=== PATIENT | male | born 1940 | race Caucasian/White ===

== ENCOUNTER → 2016-11-14 | Outpatient (CLI) | payer MEDICARE, OTHER ==
[~2016-11-14] MED LIST: ALLP100T PO; ASP81CT PO; DULO30CA PO; LISI1TAB6 PO; METO-333 PO; OMEP10CA4 PO; OMEP20CA12 PO; SMV10T PO; TEST200V3 IM
--- NOTE | 2016-11-15 10:01 | ECHOCARDIOGRAPHY REPORT ---
PROCEDURE PHYSICIAN: ANAID ASHBY DATE OF PROCEDURE: 11/14/2016 TWO DIMENSIONAL ECHOCARDIOGRAM REPORT PRIMARY PHYSICIAN: Dr. Mcclure OTHER PHYSICIAN: Dr. sAhby REFERRING PHYSICIAN: ORDERING PHYSICIAN: aCndy Conde APRN INDICATION FOR THE PROCEDURE: Coronary artery disease, history of congestive heart failure. MEASUREMENTS DERIVED VALUES LV DIAMETER (LAX) NORMALS NORMALS Diastolic 4.9 (3.6-5.2) Eject. Fract. (60%+/-6%) Systolic (2.3-3.9) Diastolic Vol. % Shortening (0.22-0.42) Systolic Vol. Aortic Root 3.5 IVS THICKNESS Diastolic 1.1 (0.6-1.1) LVPW THICKNESS Diastolic 1.1 (0.6-1.1) LA DIAMETER Systolic 3.5 (2.1-3.7) DESCRIPTION: Two-dimensional echocardiography shows well preserved global left ventricular systolic function with an ejection fraction of approximately 55%. Aortic, mitral and tricuspid valve leaflets show good leaflet excursion. There is no significant pericardial effusion. Doppler imaging shows trivial, mitral and tricuspid regurgitation. There is no evidence of any significant valvular stenosis. The aortic valve appears to be trileaflet. Mitral inflow is consistent with grade I diastolic dysfunction of the left ventricle. There is no evidence of any significant intracardiac shunt on this transthoracic echocardiographic study. Inferior vena cava appears to be of normal size and exhibits normal inspiratory collapse. CONCLUSION: 1. Well preserved global left ventricular systolic function with an ejection fraction of approximately 55%. 2. Trivial mitral and tricuspid regurgitation. 3. Pulmonary artery systolic pressure is estimated to be approximately 25 mmHg. 4. Mild diastolic dysfunction of the left ventricle is indicated on this study. 5. No evidence of any significant valvular stenosis. Job ID: [id number] Dictated Date: 11/14/2016 15:07:26 [employer] Chemist Date: 11/15/2016 09:56:04 / parish
== END ==
LOC: CARD 10:01
PROVIDERS: ATTEND Nurse Practitioner Family
DX: I34.0 Nonrheumatic mitral (valve) insufficiency (principal); I25.10 Atherosclerotic heart disease of native coronary artery without angina pectoris; I50.32 Chronic diastolic (congestive) heart failure; I10 Essential (primary) hypertension; E78.4 Other hyperlipidemia
CPT/HCPCS: 93306

== ENCOUNTER → 2017-05-22 | Outpatient (CLI) | payer MEDICARE, OTHER ==
[2017-05-22 15:22] LABS: BASOPHILS # (AUTO) 0.1 10^3/uL (0.0-0.1); BASOPHILS % (AUTO) 1 % (0-10); EOSINOPHILS # (AUTO) 0.6 10^3/uL (0.0-0.3); EOSINOPHILS % (AUTO) 6 % (0-10); LYMPHOCYTES # (AUTO) 2.4 X 10^3 (1.0-4.0); LYMPHOCYTES % (AUTO) 24 % (12-44); MEAN CORPUSCULAR HEMOGLOBIN 30 PG (25-34); MEAN CORPUSCULAR HGB CONC 34 G/DL (32-36); MEAN CORPUSCULAR VOLUME 91 FL (80-99); MEAN PLATELET VOLUME 10.5 FL (7.4-10.4); MONOCYTES # (AUTO) 0.6 X 10^3 (0.0-1.0); MONOCYTES % (AUTO) 7 % (0-12); NEUTROPHILS # (AUTO) 6.1 X 10^3 (1.8-7.8); NEUTROPHILS % (AUTO) 63 % (42-75); PLATELET COUNT 204 10^3/uL (130-400); RED BLOOD COUNT 4.78 10^6/uL (4.35-5.85); RED CELL DISTRIBUTION WIDTH 13.9 % (10.0-14.5); WHITE BLOOD COUNT 9.8 10^3/uL (4.3-11.0)
[2017-05-22 15:51] LABS: ALBUMIN 4.2 GM/DL (3.2-4.5); BILIRUBIN,TOTAL 0.6 MG/DL (0.1-1.0); CALCIUM 9.3 MG/DL (8.5-10.1); CREATININE SERUM 1.71 MG/DL (0.60-1.30); POTASSIUM 4.4 MMOL/L (3.6-5.0); TOTAL PROTEIN 7.5 GM/DL (6.4-8.2)
== END ==
LOC: LAB 15:05
PROVIDERS: ATTEND Family Medicine
DX: E11.9 Type 2 diabetes mellitus without complications (principal); E78.2 Mixed hyperlipidemia; N18.3 Chronic kidney disease, stage 3 (moderate)
CPT/HCPCS: 36415; 80053; 80061; 83036; 84403; 85025

== ENCOUNTER → 2017-09-10 | Outpatient (CLI) | payer MEDICARE, OTHER ==
--- NOTE | 2017-09-10 12:12 | Diagnostic Imaging Report ---
PROCEDURE: MRI lumbar spine. TECHNIQUE: Multiplanar, multisequence MRI of the lumbar spine was performed without contrast. INDICATION: Chronic low back pain. COMPARISON: No prior studies are available for comparison. FINDINGS: Curvature of the lumbar spine is normal. There is minimal retrolisthesis of L2 on L3 and L3 on L4 with minimal anterolisthesis of L4 on L5. The vertebral body heights are maintained. No acute compression fracture is seen. No geographic marrow lesion is identified. There is significant degenerative disc disease at all levels of the lumbar spine with variable disc space narrowing and desiccation as well as marginal osteophyte formation. The conus is unremarkable at the L1 level. T12-L1: There are degenerative changes to the facets. The central canal is patent. The neural foramina are patent. L1-2: Central canal is patent. Right neural foramen is patent. There does appear to be mild to moderate left neural foraminal narrowing. L2-3: There is broad-based disc/osteophyte complex as well as ligamentous thickening. This does create some trefoil configuration to the thecal sac. There is significant narrowing of bilateral lateral recesses. There is also significant bilateral neural foraminal stenosis. Hypertrophic facet changes are seen. L3-4: Hypertrophic facet changes and ligamentous thickening as well as broad-based disc/osteophyte complex does result in moderate trefoil stenosis to the canal. There is significant bilateral lateral recess stenosis and significant bilateral neural foraminal stenosis. L4-5: Severe hypertrophic facet changes and broad-based disc/osteophyte complex producing severe trefoil stenosis to the canal. There is severe bilateral lateral recess and neural foraminal stenosis. L5-S1: Hypertrophic facet changes are present. Central canal remains patent. There is moderate right and mild left neural foraminal stenosis and bilateral lateral recess stenosis. Paraspinous tissues are unremarkable. IMPRESSION: Significant multilevel degenerative disc and facet disease resulting in multilevel central canal, lateral recess and neural foraminal stenosis described level by level above. No acute compression fracture is detected. Dictated by: Dictated on workstation # [id number]
== END ==
LOC: RAD 10:26
PROVIDERS: ATTEND Family Medicine
DX: M48.07 Spinal stenosis, lumbosacral region (principal); M47.817 Spondylosis without myelopathy or radiculopathy, lumbosacral region; M47.815 Spondylosis without myelopathy or radiculopathy, thoracolumbar region
CPT/HCPCS: 72148

== ENCOUNTER 2018-09-02 08:46 | Outpatient (CLI) | payer MEDICARE, OTHER ==
[~2018-09-02] VITALS: Ht 180.3 cm; Wt 111.2 kg
[2018-09-02] MEDS ORDERED: SIMV10TA3 PO (09:03)
[2018-09-02] MEDS ORDERED: LISI1TAB6 PO (09:03)
[2018-09-02] MEDS ORDERED: ASPI-999 PO (09:03)
[2018-09-02] MEDS ORDERED: ALLO100T PO (09:03)
[2018-09-02] MEDS ORDERED: OMEP20CA12 PO (09:03)
[2018-09-02] MEDS ORDERED: METO-333 PO (09:03)
[2018-09-02] MEDS ORDERED: DULO30CA48 PO (09:03)
[2018-09-02 09:15] VITALS: BP 132/86
[2018-09-02] MEDS ORDERED: LIRA0.6P SQ (09:31)
[2018-09-02 10:16] LABS: BASOPHILS # (AUTO) 0.1 10^3/uL (0.0-0.1); BASOPHILS % (AUTO) 1 % (0-10); EOSINOPHILS # (AUTO) 0.6 10^3/uL (0.0-0.3); EOSINOPHILS % (AUTO) 8 % (0-10); HEMATOCRIT 41 % (40-54); HEMOGLOBIN 13.5 G/DL (13.3-17.7); LYMPHOCYTES % (AUTO) 27 % (12-44); MEAN CORPUSCULAR HEMOGLOBIN 30 PG (25-34); MEAN CORPUSCULAR HGB CONC 33 G/DL (32-36); MEAN CORPUSCULAR VOLUME 91 FL (80-99); MEAN PLATELET VOLUME 10.3 FL (7.4-10.4); MONOCYTES # (AUTO) 0.6 X 10^3 (0.0-1.0); MONOCYTES % (AUTO) 8 % (0-12); NEUTROPHILS # (AUTO) 4.3 X 10^3 (1.8-7.8); NEUTROPHILS % (AUTO) 56 % (42-75); PLATELET COUNT 242 10^3/uL (130-400); RED BLOOD COUNT 4.52 10^6/uL (4.35-5.85); RED CELL DISTRIBUTION WIDTH 14.2 % (10.0-14.5); WHITE BLOOD COUNT 7.6 10^3/uL (4.3-11.0)
[2018-09-02 10:30] LABS: CALCIUM 9.1 MG/DL (8.5-10.1); CREATININE SERUM 1.32 MG/DL (0.60-1.30); POTASSIUM 4.6 MMOL/L (3.6-5.0)
== END 2018-09-02 15:30 ==
LOC: PREOP 08:46
PROVIDERS: ATTEND Orthopaedic Surgery Orthopaedic Surgery of the Spine
DX: Z01.810 Encounter for preprocedural cardiovascular examination (principal); Z01.812 Encounter for preprocedural laboratory examination; Z11.2 Encounter for screening for other bacterial diseases; M48.061 Spinal stenosis, lumbar region without neurogenic claudication
CPT/HCPCS: 36415; 80048; 85025; 86850; 86900; 86901; 87081; 93005

== ENCOUNTER 2018-09-06 09:19 | Day surgery (SDC) | payer MEDICARE, OTHER ==
[~2018-09-06] VITALS: Ht 180.3 cm; Wt 111.2 kg
[~2018-09-06 09:19] MED LIST changes: +ALLO100T PO; +ASPI-999 PO; +DULO30CA48 PO; +LIRA0.6P SQ; +SIMV10TA3 PO
--- OUTSIDE RECORDS SUMMARY | 2018-09-06 09:24 | XMS REPORT | Continuity of Care Document ---
Author Author [facility] Organization [facility] Address Unknown Phone Unavailable Allergies Active Description Code Type Severity Reaction Onset Reported/Identified Relationship to Patient Clinical Status Yes No Known Drug Allergies [id number] Drug Allergy Unknown N/A 08/13/2012 Yes metformin [id number] Drug Allergy Moderate FLU LIKE SYMPTO 09/02/2018 Medications There is no data. Problems Date Dx Coded Attending Type Code Diagnosis Diagnosed By 08/16/2012 Ot 403.90 HYPTNSV CHR KID DIS, UNSPEC, W CHR KD ST 08/16/2012 Ot 414.01 CORONARY ATHEROSCLEROSIS OF [place] CORON 08/16/2012 Ot 425.4 PRIM CARDIOMYOPATHY NEC 08/16/2012 Ot 585.3 CHRONIC KIDNEY DISEASE, STAGE III (MODER 08/16/2012 Ot 786.59 CHEST PAIN NEC 08/16/2012 Ot V12.29 PERSONAL HX OF OTH ENDOCRINE, METABOLIC 08/16/2012 Ot V13.01 PERSONAL HISTORY OF URINARY CALCULI 09/28/2014 Ot 414.01 09/28/2014 Ot 585.9 09/28/2014 WHIT KISER FACC, ANAID FACP CCDS Ot 272.4 09/28/2014 WHIT KISER FACC, ANAID FACP CCDS Ot 401.9 09/28/2014 WHIT KISER FACC, ALI FACP CCDS Ot 414.00 09/28/2014 WHIT KISER FACC, ALI FACP CCDS Ot 425.4 09/28/2014 WHIT KISER FACC, ALI FACP CCDS Ot 428.21 09/28/2014 WHIT KISER FACC, ANAID FACP CCDS Ot 272.4 09/28/2014 WHIT KISER FACC, ANAID FACP CCDS Ot 401.9 09/28/2014 WHIT KISER FACC, ANAID FACP CCDS Ot 414.00 09/28/2014 WHIT KISER FACC, ANAID FACP CCDS Ot 425.4 09/28/2014 WHIT KISER FACC, ANAID FACP CCDS Ot 428.0 09/28/[address] [facility], ALI FACP CCDS Ot 428.21 10/15/2014 SAMANTHA KISER, ALESSIA Sow Ot 585.9 10/15/2014 SAMANTHA KISER, ALESSIA Sow Ot 780.60 10/15/2014 SAMANTHA KISER, ALESSIA Sow Ot 786.2 11/19/2014 ELOISA DO, STEPHANI M Ot 327.23 OBSTRUCTIVE SLEEP APNEA (ADULT) (PEDIATR 12/22/2014 ELOISA DO, STEPHANI M Ot 278.00 12/22/2014 ELOISA DO, STEPHANI M Ot 414.00 12/22/2014 ELOISA DO, STEPHANI M Ot 428.0 02/01/2015 ELOISA DO, STEPHANI M Ot 278.00 02/01/2015 ELOISA DO, STEPHANI M Ot 414.00 02/01/2015 ELOISA DO, STEPHANI M Ot 428.0 11/15/2016 BAIMA, DEIDRE L RAILCAR CARPENTER Ot E78.4 OTHER HYPERLIPIDEMIA 11/15/2016 BAIMA, DEIDRE L RAILCAR CARPENTER Ot I10 ESSENTIAL (PRIMARY) HYPERTENSION 11/15/2016 BAIMA, DEIDRE L RAILCAR CARPENTER Ot I25.10 ATHSCL HEART DISEASE OF [place] CORONARY 11/15/2016 BAIMA, DEIDRE L RAILCAR CARPENTER Ot I34.0 NONRHEUMATIC MITRAL (VALVE) INSUFFICIENC 11/15/2016 BAIMA, DEIDRE L RAILCAR CARPENTER Ot I50.32 CHRONIC DIASTOLIC (CONGESTIVE) HEART DAWNA 11/15/2016 BAIMA, DEIDRE L RAILCAR CARPENTER Ot E78.4 OTHER HYPERLIPIDEMIA 11/15/2016 BAIMA, DEIDRE L RAILCAR CARPENTER Ot I10 ESSENTIAL (PRIMARY) HYPERTENSION 11/15/2016 BAIMA, DEIDRE L RAILCAR CARPENTER Ot I25.10 ATHSCL HEART DISEASE OF [place] CORONARY 11/15/2016 BAIMA, DEIDRE L RAILCAR CARPENTER Ot I34.0 NONRHEUMATIC MITRAL (VALVE) INSUFFICIENC 11/15/2016 BAIMA, DEIDRE L RAILCAR CARPENTER Ot I50.32 CHRONIC DIASTOLIC (CONGESTIVE) HEART DAWNA 12/05/2016 BAIMA, DEIDRE L RAILCAR CARPENTER Ot E78.4 OTHER HYPERLIPIDEMIA 12/05/2016 BAIMA, DEIDRE L RAILCAR CARPENTER Ot I10 ESSENTIAL (PRIMARY) HYPERTENSION 12/05/2016 BAIMA, DEIDRE L RAILCAR CARPENTER Ot I25.10 ATHSCL HEART DISEASE OF [place] CORONARY 12/05/2016 DEIDRE ZAMARIRPA RAILCAR CARPENTER Ot I34.0 NONRHEUMATIC MITRAL (VALVE) INSUFFICIENC 12/05/2016 DEIDRE ZAMARRIPA RAILCAR CARPENTER Ot I50.32 CHRONIC DIASTOLIC (CONGESTIVE) HEART DAWNA 12/20/2016 DEIDRE ZAMARRIPA RAILCAR CARPENTER Ot E78.4 OTHER HYPERLIPIDEMIA 12/20/2016 DEIDRE ZAMARRIPA RAILCAR CARPENTER Ot I10 ESSENTIAL (PRIMARY) HYPERTENSION 12/20/2016 DEIDRE ZAMARRIPA RAILCAR CARPENTER Ot I25.10 ATHSCL HEART DISEASE OF [place] CORONARY 12/20/2016 DEIDRE ZAMARRIPA RAILCAR CARPENTER Ot I34.0 NONRHEUMATIC MITRAL (VALVE) INSUFFICIENC 12/20/2016 DEIDRE ZAMARRIPA RAILCAR CARPENTER Ot I50.32 CHRONIC DIASTOLIC (CONGESTIVE) HEART DAWNA 05/23/2017 SAADIA SRINIVASAN MD Ot E11.9 TYPE 2 DIABETES MELLITUS WITHOUT COMPLIC 05/23/2017 SAADIA SRINIVASAN MD Ot E78.2 MIXED HYPERLIPIDEMIA 05/23/2017 SAADIA SRINIVASAN MD C Ot N18.3 CHRONIC KIDNEY DISEASE, STAGE 3 (MODERAT 06/14/2017 SAADIA SRINIVASAN MD Ot E11.9 TYPE 2 DIABETES MELLITUS WITHOUT COMPLIC 06/14/2017 SAADIA SRINIVASAN MD Ot E78.2 MIXED HYPERLIPIDEMIA 06/14/2017 SAADIA SRINIVASAN MD Ot N18.3 CHRONIC KIDNEY DISEASE, STAGE 3 (MODERAT 09/04/2017 Ot 414.01 CORONARY ATHEROSCLEROSIS OF [place] CORON 09/04/2017 Ot 585.9 CHRONIC KIDNEY DISEASE, UNSPECIFIED 09/04/2017 WHIT KISER FACC, ANAID FACP CCDS Ot 272.4 HYPERLIPIDEMIA NEC/NOS 09/04/2017 WHIT KISER FACC, ALI FACP CCDS Ot 401.9 HYPERTENSION NOS 09/04/2017 WHIT KISER FACC, ALI FACP CCDS Ot 414.00 CORON ATHEROSCLER NOS TYPE VESSEL, NATIV 09/04/2017 WHIT KISER FACC, ALI FACP CCDS Ot 425.4 PRIM CARDIOMYOPATHY NEC 09/04/2017 WHIT KISER FACC, ALI FACP CCDS Ot 428.21 ACUTE SYSTOLIC HEART FAILURE 09/04/2017 WHIT KISER FACC, ALI FACP CCDS Ot 272.4 HYPERLIPIDEMIA NEC/NOS 09/04/2017 WHIT KISER FACC, ALI FACP CCDS Ot 401.9 HYPERTENSION NOS 09/04/2017 WHIT KISER FACC, ALI FACP CCDS Ot 414.00 CORON ATHEROSCLER NOS TYPE VESSEL, NATIV 09/04/2017 WHIT KISER FACC, ALI FACP CCDS Ot 425.4 PRIM CARDIOMYOPATHY NEC 09/04/2017 WHIT KISER FACC, ALI FACP CCDS Ot 428.0 CONGESTIVE HEART FAILURE NOS 09/04/2017 WHIT KISER FACC, ALI FACP CCDS Ot 428.21 ACUTE SYSTOLIC HEART FAILURE 09/04/2017 SAMANTHA KISER, ALESSIA Sow Ot 585.9 CHRONIC KIDNEY DISEASE, UNSPECIFIED 09/04/2017 ALESSIA SINGH MD Ot 780.60 FEVER, UNSPECIFIED 09/04/2017 ALESSIA SINGH MD Ot 786.2 COUGH 09/04/2017 ELIEL AMIN DOSON M Ot 278.00 OBESITY, NOS 09/04/2017 ELOISA YEBOAH STEPHANI M Ot 414.00 CORON ATHEROSCLER NOS TYPE VESSEL, NATIV 09/04/2017 ELIEL AMIN DOSON M Ot 428.0 CONGESTIVE HEART FAILURE NOS 09/04/2017 DEIDRE ZAMARRIPA RAILCAR CARPENTER Ot E78.4 OTHER HYPERLIPIDEMIA 09/04/2017 DEIDRE ZAMARRIPA L RAILCAR CARPENTER Ot I10 ESSENTIAL (PRIMARY) HYPERTENSION 09/04/2017 DEIDRE ZAMARRIPA L RAILCAR CARPENTER Ot I25.10 ATHSCL HEART DISEASE OF [place] CORONARY 09/04/2017 DEIDRE ZAMARRIPA L RAILCAR CARPENTER Ot I34.0 NONRHEUMATIC MITRAL (VALVE) INSUFFICIENC 09/04/2017 DEIDRE ZAMARRIPA RAILCAR CARPENTER Ot I50.32 CHRONIC DIASTOLIC (CONGESTIVE) HEART DAWNA 09/04/2017 CRAIG KISER, SAADIA Andrade Ot E11.9 TYPE 2 DIABETES MELLITUS WITHOUT COMPLIC 09/04/2017 SAADIA SRINIVASAN MD Ot E78.2 MIXED HYPERLIPIDEMIA 09/04/2017 SAADIA SRINIVASAN MD Ot N18.3 CHRONIC KIDNEY DISEASE, STAGE 3 (MODERAT 09/11/2017 SAADIA SRINIVASAN MD Ot 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 09/11/2017 SAADIA SRINIVASAN MD Ot M47.817 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 RADICULOPATHY 09/11/2017 SAADIA SRINIVASAN MD Ot M48.07 SPINAL STENOSIS, LUMBOSACRAL REGION 10/02/2017 CRAIG KISER, SAADIA Andrade Ot 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00 CORON ATHEROSCLER NOS TYPE VESSEL, NATIV 09/02/2018 WHIT KISER FACC, ALI FACP CCDS Ot 425.4 PRIM CARDIOMYOPATHY NEC 09/02/2018 WHIT KISER FACC, ALI FACP CCDS Ot 428.21 ACUTE SYSTOLIC HEART FAILURE 09/02/2018 WHIT KISER FACC, ALI FACP CCDS Ot 272.4 HYPERLIPIDEMIA NEC/NOS 09/02/2018 WHIT KISER FACC, ALI FACP CCDS Ot 401.9 HYPERTENSION NOS 09/02/2018 WHIT KISER FACC, ALI FACP CCDS Ot 414.00 CORON ATHEROSCLER NOS TYPE VESSEL, NATIV 09/02/2018 WHIT KISER FACC, ALI FACP CCDS Ot 425.4 PRIM CARDIOMYOPATHY NEC 09/02/2018 WHIT HANKINSC, ALI FACP CCDS Ot 428.0 CONGESTIVE HEART FAILURE NOS 09/02/2018 WHIT KISER FACC, ALI FACP CCDS Ot 428.21 ACUTE SYSTOLIC HEART FAILURE 09/02/2018 ALESSIA SINGH MD Ot 585.9 CHRONIC KIDNEY DISEASE, UNSPECIFIED 09/02/2018 ALESSIA SINGH MD Ot 780.60 FEVER, UNSPECIFIED 09/02/2018 ALESSIA SINGH MD Ot 786.2 COUGH 09/02/2018 STEPHANI AMIN DO Ot 278.00 OBESITY, NOS 09/02/2018 ELOISA YEBOAH STEPHANI M Ot 414.00 CORON ATHEROSCLER NOS TYPE VESSEL, NATIV 09/02/2018 STEPHANI AMIN DO Ot 428.0 CONGESTIVE HEART FAILURE NOS 09/02/2018 RAKELDEIDRE ROGERS RAILCAR CARPENTER Ot E78.4 OTHER HYPERLIPIDEMIA 09/02/2018 DALLIN DEIDRE Jomar RAILCAR CARPENTER Ot I10 ESSENTIAL (PRIMARY) HYPERTENSION 09/02/2018 DALLIN DEIDRE Hadley RAILCAR CARPENTER Ot I25.10 ATHSCL HEART DISEASE OF [place] CORONARY 09/02/2018 RAKELSUE DEIDRE Jomar RAILCAR CARPENTER Ot I34.0 NONRHEUMATIC MITRAL (VALVE) INSUFFICIENC 09/02/2018 DEIDRE ZAMARRIPA RAILCAR CARPENTER Ot I50.32 CHRONIC DIASTOLIC (CONGESTIVE) HEART DAWNA 09/02/2018 CRAIG KISER, SAADIA Andrade Ot E11.9 TYPE 2 DIABETES MELLITUS WITHOUT COMPLIC 09/02/2018 CRAIG KISER, SAADIA Andrade Ot E78.2 MIXED HYPERLIPIDEMIA 09/02/2018 CRAIG KISER, SAADIA Andrade Ot N18.3 CHRONIC KIDNEY DISEASE, STAGE 3 (MODERAT 09/02/2018 CRAIG KISER, SAADIA C Ot 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 09/02/2018 SAADIA SRINIVASAN MD Ot M47.817 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 RADICULOPATHY 09/02/2018 CRAIG KISER, SAADIA Andrade Ot M48.07 SPINAL STENOSIS, LUMBOSACRAL REGION 09/02/2018 WHIT KISER FACC, ALI FACP CCDS Ot 272.4 HYPERLIPIDEMIA NEC/NOS 09/02/2018 WHIT KISER FACC, ALI FACP CCDS Ot 401.9 HYPERTENSION NOS 09/02/2018 WHIT KISER FACC, ALI FACP CCDS Ot 414.00 CORON ATHEROSCLER NOS TYPE VESSEL, NATIV 09/02/2018 WHIT KISER FACC, ALI FACP CCDS Ot 425.4 PRIM CARDIOMYOPATHY NEC 09/02/2018 WHIT KISER FACC, ALI FACP CCDS Ot 428.21 ACUTE SYSTOLIC HEART FAILURE 09/02/2018 WHIT KISER FACC, ALI FACP CCDS Ot 272.4 HYPERLIPIDEMIA NEC/NOS 09/02/2018 WHIT KISER FACC, ALI FACP CCDS Ot 401.9 HYPERTENSION NOS 09/02/2018 WHIT KISER FAC, ALI FACP CCDS Ot 414.00 CORON ATHEROSCLER NOS TYPE VESSEL, NATIV 09/02/2018 WHIT KISER FACC, ALI FACP CCDS Ot 425.4 PRIM CARDIOMYOPATHY NEC 09/02/2018 WHIT KISER FACC, ALI FACP CCDS Ot 428.0 CONGESTIVE HEART FAILURE NOS 09/02/2018 WHIT KISER FACC, ALI FACP CCDS Ot 428.21 ACUTE SYSTOLIC HEART FAILURE 09/02/2018 SAMANTHA KISER, ALESSIA Sow Ot 585.9 CHRONIC KIDNEY DISEASE, UNSPECIFIED 09/02/2018 SAMANTHA KISER, ALESSIA Sow Ot 780.60 FEVER, UNSPECIFIED 09/02/2018 ALESSIA SINGH MD Ot 786.2 COUGH 09/02/2018 STEPHANI AMIN DO Ot 278.00 OBESITY, NOS 09/02/2018 ELIEL AMIN DOSON M Ot 414.00 CORON ATHEROSCLER NOS TYPE VESSEL, NATIV 09/02/2018 ELIEL AMIN DOSON M Ot 428.0 CONGESTIVE HEART FAILURE NOS 09/02/2018 DEIDRE ZAMARRIPA RAILCAR CARPENTER Ot E78.4 OTHER HYPERLIPIDEMIA 09/02/2018 DEIDRE ZAMARRIPA RAILCAR CARPENTER Ot I10 ESSENTIAL (PRIMARY) HYPERTENSION 09/02/2018 DEIDRE ZAMARRIPA RAILCAR CARPENTER Ot I25.10 ATHSCL HEART DISEASE OF [place] CORONARY 09/02/2018 DEIDRE ZAMARRIPA RAILCAR CARPENTER Ot I34.0 NONRHEUMATIC MITRAL (VALVE) INSUFFICIENC 09/02/2018 DEIDRE ZAMARRIPA RAILCAR CARPENTER Ot I50.32 CHRONIC DIASTOLIC (CONGESTIVE) HEART DAWNA 09/02/2018 SAADIA SRINIVASAN MD Ot E11.9 TYPE 2 DIABETES MELLITUS WITHOUT COMPLIC 09/02/2018 SAADIA SRINIVASAN MD Ot E78.2 MIXED HYPERLIPIDEMIA 09/02/2018 SAADIA SRINIVASAN MD Ot N18.3 CHRONIC KIDNEY DISEASE, STAGE 3 (MODERAT 09/02/2018 SAADIA SRINIVASAN MD Ot 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 09/02/2018 SAADIA SRINIVASAN MD, Ot M47.817 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 RADICULOPATHY 09/02/2018 SAADIA SRINIVASAN MD, Ot M48.07 SPINAL STENOSIS, LUMBOSACRAL REGION 09/02/2018 MARY ANN ALARCON MD Ot M48.061 SPINAL STENOSIS, LUMBAR REGION WITHOUT N 09/02/2018 MARY ANN ALARCON MD Ot Z01.810 ENCOUNTER FOR PREPROCEDURAL CARDIOVASCUL 09/02/2018 MARY ANN ALARCON MD Ot Z01.812 ENCOUNTER FOR PREPROCEDURAL LABORATORY E 09/02/2018 MARY ANN ALARCON MD Ot Z11.2 ENCOUNTER FOR SCREENING FOR OTHER BACTER 09/05/2018 MARY ANN ALARCON MD Ot M48.061 SPINAL STENOSIS, LUMBAR REGION WITHOUT N 09/05/2018 MARY ANN ALARCON MD Ot Z01.810 ENCOUNTER FOR PREPROCEDURAL CARDIOVASCUL 09/05/2018 MARY ANN ALARCON MD Ot Z01.812 ENCOUNTER FOR PREPROCEDURAL LABORATORY E 09/05/2018 MARY ANN ALARCON MD Ot Z11.2 ENCOUNTER FOR SCREENING FOR OTHER BACTER 09/05/2018 WHIT KISER FACC, ANAID FACP CCDS Ot 272.4 HYPERLIPIDEMIA NEC/NOS 09/05/2018 WHIT KISER FACC, ALI FACP CCDS Ot 401.9 HYPERTENSION NOS 09/05/2018 WHIT HANKINSC, ALI FACP CCDS Ot 414.00 CORON ATHEROSCLER NOS TYPE VESSEL, NATIV 09/05/2018 WHIT KISER FACC, ALI FACP CCDS Ot 425.4 PRIM CARDIOMYOPATHY NEC 09/05/2018 WHIT KISER FACC, ALI FACP CCDS Ot 428.21 ACUTE SYSTOLIC HEART FAILURE 09/05/2018 WHIT KISER FACC, ALI FACP CCDS Ot 272.4 HYPERLIPIDEMIA NEC/NOS 09/05/2018 WHIT KISER FACC, ALI FACP CCDS Ot 401.9 HYPERTENSION NOS 09/05/2018 WHIT KISER FACC, ALI FACP CCDS Ot 414.00 CORON ATHEROSCLER NOS TYPE VESSEL, NATIV 09/05/2018 WHIT KISER FACC, ALI FACP CCDS Ot 425.4 PRIM CARDIOMYOPATHY NEC 09/05/2018 WHIT KISER FACC, ALI FACP CCDS Ot 428.0 CONGESTIVE HEART FAILURE NOS 09/05/2018 WHIT KISER FACC, ALI FACP CCDS Ot 428.21 ACUTE SYSTOLIC HEART FAILURE 09/05/2018 ALESSIA SINGH MD Ot 585.9 CHRONIC KIDNEY DISEASE, UNSPECIFIED 09/05/2018 ALESSIA SINGH MD Ot 780.60 FEVER, UNSPECIFIED 09/05/2018 ALESSIA SINGH MD Ot 786.2 COUGH 09/05/2018 STEPHANI AMIN DO Ot 278.00 OBESITY, NOS 09/05/2018 STEPHANI AMIN DO Ot 414.00 CORON ATHEROSCLER NOS TYPE VESSEL, NATIV 09/05/2018 STEPHANI AMIN DO Ot 428.0 CONGESTIVE HEART FAILURE NOS 09/05/2018 DEIDRE ZAMARRIPA RAILCAR CARPENTER Ot E78.4 OTHER HYPERLIPIDEMIA 09/05/2018 DEIDRE ZAMARRIPA RAILCAR CARPENTER Ot I10 ESSENTIAL (PRIMARY) HYPERTENSION 09/05/2018 DEIDRE ZAMARRIPA RAILCAR CARPENTER Ot I25.10 ATHSCL HEART DISEASE OF [place] CORONARY 09/05/2018 DEIDRE ZAMARRIPA RAILCAR CARPENTER Ot I34.0 NONRHEUMATIC MITRAL (VALVE) INSUFFICIENC 09/05/2018 DEIDRE ZAMARRIPA RAILCAR CARPENTER Ot I50.32 CHRONIC DIASTOLIC (CONGESTIVE) HEART DAWNA 09/05/2018 SAADIA SRINIVASAN MD Ot E11.9 TYPE 2 DIABETES MELLITUS WITHOUT COMPLIC 09/05/2018 SAADIA SRINIVASAN MD, Ot E78.2 MIXED HYPERLIPIDEMIA 09/05/2018 SAADIA SRINIVASAN MD Ot N18.3 CHRONIC KIDNEY DISEASE, STAGE 3 (MODERAT 09/05/2018 SAADIA SRINIVASAN MD Ot 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 09/05/2018 SAADIA SRINIVASAN MD, Ot M47.817 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 RADICULOPATHY 09/05/2018 SAADIA SRINIVASAN MD, Ot M48.07 SPINAL STENOSIS, LUMBOSACRAL REGION Procedures Code Description Performed By Performed On 37.22 LEFT HEART CARDIAC CATH 08/15/2012 88.56 CORONAR ARTERIOGR-2 CATH 08/15/2012 Results Test Result Range Hemoglobin A1c - 05/22/17 12:15 Hemoglobin A1c 5.8 % 4.5-6.2 Serum or plasma testosterone measurement (mass/volume) - 05/22/17 12:15 Testosterone [mass or moles/volume] in serum or plasma 80 % 241-827 Complete blood count (CBC) with automated white blood cell (WBC) differential - 05/22/17 15:15 Blood leukocytes automated count (number/volume) 9.8 10*3/uL 4.3-11.0 Blood erythrocytes automated count (number/volume) 4.78 10*6/uL 4.35-5.85 Venous blood hemoglobin measurement (mass/volume) 14.5 g/dL 13.3-17.7 Blood hematocrit (volume fraction) 43 % 40-54 Automated erythrocyte mean corpuscular volume 91 [foz_us] 80-99 Automated erythrocyte mean corpuscular hemoglobin (mass per erythrocyte) 30 pg 25-34 Automated erythrocyte mean corpuscular hemoglobin concentration measurement ( mass/volume) 34 g/dL 32-36 Automated erythrocyte distribution width ratio 13.9 % 10.0-14.5 Automated blood platelet count (count/volume) 204 10*3/uL 130-400 Automated blood platelet mean volume measurement 10.5 [foz_us] 7.4-10.4 Automated blood neutrophils/100 leukocytes 63 % 42-75 Automated blood lymphocytes/100 leukocytes 24 % 12-44 Blood monocytes/100 leukocytes 7 % 0-12 Automated blood eosinophils/100 leukocytes 6 % 0-10 Automated blood basophils/100 leukocytes 1 % 0-10 Blood neutrophils automated count (number/volume) 6.1 10*3 1.8-7.8 Blood lymphocytes automated count (number/volume) 2.4 10*3 1.0-4.0 Blood monocytes automated count (number/volume) 0.6 10*3 0.0-1.0 Automated eosinophil count 0.6 10*3/uL 0.0-0.3 Automated blood basophil count (count/volume) 0.1 10*3/uL 0.0-0.1 Comprehensive metabolic panel - 05/22/17 15:15 Serum or plasma sodium measurement (moles/volume) 141 mmol/L 135-145 Serum or plasma potassium measurement (moles/volume) 4.4 mmol/L 3.6-5.0 Serum or plasma chloride measurement (moles/volume) 112 mmol/L 98-107 Carbon dioxide 23 mmol/L 21-32 Serum or plasma anion gap determination (moles/volume) 6 mmol/L 5-14 Serum or plasma urea nitrogen measurement (mass/volume) 34 mg/dL 7-18 Serum or plasma creatinine measurement (mass/volume) 1.71 mg/dL 0.60-1.30 Serum or plasma urea nitrogen/creatinine mass ratio 20 NRG Serum or plasma creatinine measurement with calculation of estimated glomerular filtration rate 39 NRG Serum or plasma glucose measurement (mass/volume) 142 mg/dL 70-105 Serum or plasma calcium measurement (mass/volume) 9.3 mg/dL 8.5-10.1 Serum or plasma total bilirubin measurement (mass/volume) 0.6 mg/dL 0.1-1.0 Serum or plasma alkaline phosphatase measurement (enzymatic activity/volume) 76 U/L 40-136 Serum or plasma aspartate aminotransferase measurement (enzymatic activity/ volume) 17 U/L 5-34 Serum or plasma alanine aminotransferase measurement (enzymatic activity/volume ) 20 U/L 0-55 Serum or plasma protein measurement (mass/volume) 7.5 g/dL 6.4-8.2 Serum or plasma albumin measurement (mass/volume) 4.2 g/dL 3.2-4.5 Lipid 1996 panel - 05/22/17 15:15 Serum or plasma triglyceride measurement (mass/volume) 206 mg/dL <150 Serum or plasma cholesterol measurement (mass/volume) 121 mg/dL < 200 Serum or plasma cholesterol in HDL measurement (mass/volume) 33 mg/ dL 40-60 Cholesterol in LDL [mass/volume] in serum or plasma by direct assay 60 mg/dL 1-129 Serum or plasma cholesterol in VLDL measurement (mass/volume) 41 mg/ dL 5-40 Complete blood count (CBC) with automated white blood cell (WBC) differential - 09/02/18 09:35 Blood leukocytes automated count (number/volume) 7.6 10*3/uL 4.3-11.0 Blood erythrocytes automated count (number/volume) 4.52 10*6/uL 4.35-5.85 Venous blood hemoglobin measurement (mass/volume) 13.5 g/dL 13.3-17.7 Blood hematocrit (volume fraction) 41 % 40-54 Automated erythrocyte mean corpuscular volume 91 [foz_us] 80-99 Automated erythrocyte mean corpuscular hemoglobin (mass per erythrocyte) 30 pg 25-34 Automated erythrocyte mean corpuscular hemoglobin concentration measurement ( mass/volume) 33 g/dL 32-36 Automated erythrocyte distribution width ratio 14.2 % 10.0-14.5 Automated blood platelet count (count/volume) 242 10*3/uL 130-400 Automated blood platelet mean volume measurement 10.3 [foz_us] 7.4-10.4 Automated blood neutrophils/100 leukocytes 56 % 42-75 Automated blood lymphocytes/100 leukocytes 27 % 12-44 Blood monocytes/100 leukocytes 8 % 0-12 Automated blood eosinophils/100 leukocytes 8 % 0-10 Automated blood basophils/100 leukocytes 1 % 0-10 Blood neutrophils automated count (number/volume) 4.3 10*3 1.8-7.8 Blood lymphocytes automated count (number/volume) 2.0 10*3 1.0-4.0 Blood monocytes automated count (number/volume) 0.6 10*3 0.0-1.0 Automated eosinophil count 0.6 10*3/uL 0.0-0.3 Automated blood basophil count (count/volume) 0.1 10*3/uL 0.0-0.1 Whole blood basic metabolic panel - 09/02/18 09:35 Serum or plasma sodium measurement (moles/volume) 140 mmol/L 135-145 Serum or plasma potassium measurement (moles/volume) 4.6 mmol/L 3.6-5.0 Serum or plasma chloride measurement (moles/volume) 109 mmol/L 98-107 Carbon dioxide 22 mmol/L 21-32 Serum or plasma anion gap determination (moles/volume) 9 mmol/L 5-14 Serum or plasma urea nitrogen measurement (mass/volume) 20 mg/dL 7-18 Serum or plasma creatinine measurement (mass/volume) 1.32 mg/dL 0.60-1.30 Serum or plasma urea nitrogen/creatinine mass ratio 15 NRG Serum or plasma creatinine measurement with calculation of estimated glomerular filtration rate 53 NRG Serum or plasma glucose measurement (mass/volume) 95 mg/dL 70-105 Serum or plasma calcium measurement (mass/volume) 9.1 mg/dL 8.5-10.1 Blood type T Indirect antibody screen panel - 09/02/18 09:35 ABO+Rh group AP NRG Blood group antibody screen NEGATIVE NRG Methicillin resistant Staphylococcus aureus (MRSA) screening culture - 09:35 Methicillin resistant Staphylococcus aureus (MRSA) screening culture NEG NRG Encounters ACCT No. Visit Date/Time Discharge Status Pt. 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 [id number] 11/14/2016 10:01:00 11/14/2016 23:59:59 CLS Outpatient DEIDRE ZAMARRIPA [facility] CARD I34.0,CAD,CHF, HYPERTENSION,HYPERLIPIDEMIA [id number] 11/18/2014 19:57:00 11/19/2014 06:45:00 DIS Outpatient STEPHANI AMIN DO [facility] SLEEP SNORING CHOKING GASPING ARRHYTHMIAS HTN [id number] 11/18/2014 08:14:00 11/18/2014 23:59:59 CLS Outpatient STEPHANI AMIN DO [facility] RT CHF CAD [id number] 09/28/2014 11:47:00 09/28/2014 23:59:59 CLS Outpatient ALESSIA SINGH MD [facility] LAB COUGH FEVER CHRONIC RENAL DZ [id number] 04/23/2014 10:00:00 04/23/2014 23:59:59 CLS Outpatient WHIT KISER FACC, ANAID FACP CCDS [facility] CARD CAD,CHF,HTN [id number] 04/13/2014 12:20:00 04/13/2014 23:59:59 CLS Outpatient WHIT KISER FACC, ALI FACP CCDS [facility] LAB HTN,HLP,CAD, CARIOMYOPATHY,SYSTOLIC CHF [id number] 09/06/2018 09:19:00 ACT Outpatient MARY ANN ALARCON MD [facility] SDC LUMBAR STENOSIS [id number] 09/06/2012 07:57:00 Document Registration [id number] 08/14/2012 17:23:00 Document Registration
[2018-09-06] MEDS: LACTATED RINGERS 1,000 ML IV PRN ×2 (10:00→11:53)
[2018-09-06] MEDS ORDERED: ceFAZolin 2 GM IV Premixed 50 ML ONE (10:16)
[2018-09-06] MEDS ORDERED: proPOfol 200 MG/20 ML (DIPRIVAN) VIAL IV ONE (10:17)
[2018-09-06] MEDS ORDERED: ONDANSETRON 4 MG/2 ML (SDV) Z0FRAN ONE (10:17)
[2018-09-06] MEDS ORDERED: fentaNYL INJECTION 100 MCG/2 ML AMP ONE (10:17)
[2018-09-06] MEDS ORDERED: LIDOCAINE PF 2% 5 ML (XYLOCAINE) VIAL ONE (10:17)
[2018-09-06] MEDS ORDERED: ROCURONIUM 10 MG/ML 5 ML SYRINGE IV ONE (10:17)
[2018-09-06] MEDS ORDERED: MIDAZOLAM 2 MG/2 ML (VERSED) VIAL ONE (10:17)
[2018-09-06] MEDS ORDERED: GENTAMICIN 40 MG/ML 2 ML INJ SDV ONE (10:21)
[2018-09-06] MEDS ORDERED: VANCOMYCIN 1000 MG/VIAL ONE (10:21)
[2018-09-06] MEDS ORDERED: BUP/EPI 0.5% 1:200,000 (SENSORCAINE) 30 ML VIAL ONE (10:21)
[2018-09-06] MEDS ORDERED: SEVOFLURANE (ULTANE) 15 ML INHAL SOLN ONE ×8 (10:28→13:09)
[2018-09-06] MEDS ORDERED: ceFAZolin 2 GM IV Premixed 50 ML IV ONE (10:30)
[2018-09-06] MEDS ORDERED: PROPOFOL INJECTION 50 ML IV ONE (10:33)
[2018-09-06 10:36] VITALS: BP 143/80
[2018-09-06] MEDS ORDERED: ONDANSETRON 4 MG/2 ML (SDV) Z0FRAN IV PRN (10:45)
[2018-09-06] MEDS ORDERED: ACETAMINOPHEN 325 MG TABLET PO PRN (10:45)
[2018-09-06] MEDS ORDERED: BISACODYL 5 MG (DULCOLAX) TABLET PO PRN (10:45)
[2018-09-06] MEDS: inSUlin ASPART (NovoLOG) 1 UNIT/0.01 ML (CHARGE PER UNIT) SC SCH ×3 (11:00→22:15)
[2018-09-06] MEDS ORDERED: TRANEXAMIC ACID 100 MG/ML 10 ML INJECTION IV ONE (12:22)
--- NOTE | 2018-09-06 13:07 | Progress Note-Post Operative ---
Post-Operative Progess Note Surgeon (s)/Crematory Attendant (s) Surgeon MARY ANN ALARCON MD Crematory Attendant: JOANNE Andrade Pre-Operative Diagnosis LUMBAR STENOSIS Post-Operative Diagnosis Same Procedure & Operative Findings Date of Procedure 09/06/18 Procedure Performed/Findings L2-5 Lami Anesthesia Type GETA Estimated Blood Loss Estimated blood loss (mL): <50 Specimens/Packing Specimens Removed none MARY ANN ALARCON MD Sep 06, 2018 13:07
[2018-09-06] MEDS ORDERED: GLYCOPYRROLATE 0.2 MG/ML (ROBINUL) 2 ML VIAL ONE (13:16)
[2018-09-06] MEDS ORDERED: NEOSTIGMINE 1 MG/ML 5 ML SYRINGE ONE (13:16)
[2018-09-06] MEDS ORDERED: HYDROmorphone 2 MG/ML VIAL (DILAUDID) IV ONE (13:45)
[2018-09-06] MEDS ORDERED: ONDANSETRON 4 MG/2 ML (SDV) Z0FRAN IVP PRN (13:45)
[2018-09-06 14:30] VITALS: BP 140/75
--- NOTE | 2018-09-06 14:30 | NUR ---
ZAHEER SINGH admitted to room 424-1, with an admitting diagnosis of L2-L5 LAMINECTOMY, on 09/06/18 [facility] via [facility], accompanied by STAFF.SIMON SINGH introduced to surroundings, call light, bed controls, phone, TV, temperature control, lights, meal times, smoking policy, visitor policy, side rail policy, bathrooms and showers. Patient Rights given to patient in the handbook.SIMON SINGH verbalizes understanding that [facility] is not responsible for the loss or damage to any personal effects or valuables that are kept in the patients posession during their hospitalization. The following Patient Care Plans were discussed with the PT: Discharge Planning, PAIN CONTROL,IV THERAPY, and TESTS AND PROCEDURES. SIMON SINGH verbalizes understanding of Interdisciplinary Patient Education. Patient and/or family were informed about the Rapid Response Team and its purpose.
[2018-09-06] MEDS: morphine INJ 10 MG/ML 1ML (SYR OR VIAL) IVP PRN ×2 (14:59→17:24)
[2018-09-06] MEDS: NS IV 1000 ML 1,000 ML IV SCH ×2 (15:05→18:30)
[2018-09-06] MEDS: HYDROcodone/APAP 5 MG/325 MG (LORTAB) TAB PO PRN ×2 (15:51→19:57)
[2018-09-06 16:00] VITALS: BP 135/77
--- NOTE | 2018-09-06 17:26 | Consultation-Hospitalist ---
HPI History of Present Illness: HPI/Chief Complaint CC: Medical management following spine surgery uncomplicated by Dr Soto POD # 0 HPI: This is a 78-year-old white male clinic patient of Dr. Melendez, Dr. Sotomayor , Dr. Ashby who presents following an uncomplicated lumbar spine surgery by Dr. Soto. He currently is reporting pain but no shortness of breath or chest pain. Patient is compliant with CPAP at home and brought it with him tonight. 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 Source: patient, family, RN/MD Exam Limitations: no limitations Date Seen 09/06/18 Attending Physician Varun Soto MD PCP Nabil Melendez MD Referring Physician Varun Soto Date of Admission Home Medications & Allergies Home Medications Reviewed patient Home Medication Reconciliation performed by pharmacy medication reconciliations metallographic technician and/or nursing. Patients Allergies have been reviewed. Allergies Allergies Coded Allergies metformin (Verified Allergy, Intermediate, FLU LIKE SYMPTOMS, 09/02/18) Past Natvlmv-Ljssfj-Vinlcu Hx Past Med/Social Hx: Reviewed Nursing Past Med/Soc Hx, Reviewed and Corrections made Patient Social History Marrital Status: cohabiting Employed/Student: retired Alcohol Use: Rarely Uses Recreational Drug Use: No Smoking Status: Former Smoker Former Smoker, Quit: Sep 02, 1976 2nd Hand Smoke Exposure: Yes Recent Foreign Travel: No Contact w/other who traveled: No Recent Hopitalizations: No Recent Infectious Disease Expo: No Immunizations Up To Date Date of Pneumonia Vaccine: May 28, 2017 Date of Influenza Vaccine: May 27, 2018 Seasonal Allergies Seasonal Allergies: No Past Medical History Surgeries: Orthopedic, Tonsillectomy Respiratory: Sleep Apnea Currently Using CPAP: Yes Cardiac: High Cholesterol, Hypertension Reproductive: Yes (takes testosterone injections) Sexually Transmitted Disease: No HIV/AIDS: No Genitourinary: Kidney Stones Gastrointestinal: Colitis, Gastroesophageal Reflux Endocrine: Diabetes, Non-Insulin dep Loss of Vision: Bilateral Hearing Impairment: Bilateral Hearing Aide History of Blood Disorders: No Adverse Reaction to Blood Resendiz: No (N/A) Family History Hypertension Review of Systems Constitutional: see HPI EENTM: no symptoms reported Respiratory: no symptoms reported Cardiovascular: no symptoms reported Gastrointestinal: no symptoms reported Genitourinary: no symptoms reported Musculoskeletal: back pain Skin: no symptoms reported Psychiatric/Neurological: No Symptoms Reported All Other Systems Reviewed Negative Unless Noted: Yes Physical Exam Physical Exam Vital Signs Vital Signs - First Documented 09/06/18 09/06/18 10:36 14:30 Temp 97.4 Pulse 70 Resp 16 B/P (MAP) 143/80 (101) Pulse Ox 95 O2 Delivery Room Air Capillary Refill : Height, Weight, BMI Height: 5'11.00" Weight: 245lbs. 4.0oz. 111.680572yk; 34.2 BMI Method:Stated General Appearance: No Apparent Distress, WD/WN, Obese Eyes: Bilateral Eye Normal Inspection, Bilateral Eye PERRL HEENT: PERRL/EOMI, TMs Normal, Normal ENT Inspection, Pharynx Normal Neck: Full Range of Motion, Normal Inspection, Non Tender, Supple, Carotid Bruit Respiratory: Chest Non Tender, Lungs Clear, Normal Breath Sounds, No Accessory Muscle Use, No Respiratory Distress Cardiovascular: Regular Rate, Rhythm, No Edema, No Gallop, No JVD, No Murmur, Normal Peripheral Pulses Gastrointestinal: Normal Bowel Sounds, No Organomegaly, No Pulsatile Mass, Non Tender, Soft Back: Normal Inspection, No CVA Tenderness, Decreased Range of Motion Extremity: Normal Capillary Refill, Normal Inspection, Normal Range of Motion, Non Tender, No Calf Tenderness, No Pedal Edema Neurologic/Psychiatric: Alert, Oriented x3, No Motor/Sensory Deficits, Normal Mood/Affect Skin: Normal Color, Warm/Dry Lymphatic: No Adenopathy Results Results/Procedures Labs Patient resulted labs reviewed. Assessment/Plan Assessment and Plan Assess & Plan/Chief Complaint Assessment: s/p uncomplicated lumbar spine surgery POD # [address] Soto KARAN on CPAP HTN DM DJD spine GERD Plan: Pain control Bladder monitoring PPI prn meds Diagnosis/Problems Diagnosis/Problems (1) H/O lumbosacral spine surgery Status: Acute (2) KARAN on CPAP Status: Chronic (3) Hypertension Status: Chronic Qualifiers: Hypertension type: essential hypertension Qualified Codes: I10 - Essential (primary) hypertension (4) Lumbar stenosis Status: Resolved Qualifiers: Neurogenic claudication status: with neurogenic claudication Qualified Codes: M48.062 - Spinal stenosis, lumbar region with neurogenic claudication Resolution Date/Time: 09/06/18 @ 21:16 (5) GERD (gastroesophageal reflux disease) Status: Chronic Qualifiers: Esophagitis presence: without esophagitis Qualified Codes: K21.9 - Gastro- esophageal reflux disease without esophagitis (6) Gout Status: Chronic Qualifiers: Gout site: unspecified site Gout etiology: unspecified cause Chronicity: unspecified Qualified Codes: M10.9 - Gout, unspecified INGRIS BELTRÁN DO Sep 06, 2018 17:26
--- NOTE | 2018-09-06 17:52 | Diagnostic Imaging Report ---
INDICATION: Fluoroscopy for lumbar spine surgery. EXAMINATION: Thoracic was provided in the OR for lumbar localization. FINDINGS: 2 seconds of fluoroscopy was utilized. Surgical instrument is noted, posteriorly, at approximately the L2-3 level. IMPRESSION: Fluoroscopy during lumbar localization in the OR. Dictated by: Dictated on workstation # [id number]
[2018-09-06] MEDS: ceFAZolin 2 GM IV Premixed 50 ML IV SCH (18:30)
[2018-09-06 20:00] VITALS: BP 110/56
[2018-09-06] MEDS ORDERED: DOCUSATE SODIUM 100 MG (COLACE) CAP PO SCH (21:00)
[2018-09-06] MEDS ORDERED: ALPRAZolam 0.25 MG (XANAX) TAB PO PRN (21:30)
[2018-09-06] MEDS ORDERED: CALCIUM CARBONATE 500 MG (TUMS) TAB.CHEW PO PRN (21:30)
[2018-09-06] MEDS ORDERED: MELATONIN 3 MG TABLET PO PRN (21:30)
[2018-09-06] MEDS ORDERED: diphenhydrAMINE 25 MG TAB (BENADRYL) PO PRN (21:30)
[2018-09-06 23:22] VITALS: BP 107/58
--- NOTE | 2018-09-06 23:57 | OPERATIVE REPORT ---
DATE OF SERVICE: 09/06/2018 PREOPERATIVE DIAGNOSES: Lumbar stenosis, neural canal degenerative disk and osseous structures, lumbar radiculopathy, neurogenic claudication. POSTOPERATIVE DIAGNOSES: Lumbar stenosis, neural canal degenerative disk and osseous structures, lumbar radiculopathy, neurogenic claudication. PROCEDURES PERFORMED: 1. L2-L3 laminectomy, bilateral medial facetectomy and foraminotomy. 2. L3-L4 laminectomy, bilateral medial facetectomy and foraminotomy. 3. L4-L5 laminectomy, bilateral medial facetectomy and foraminotomy. DATE AND TIME OF SURGERY: Please see anesthesia record. SURGEON: Varun Soto MD. BRIDGE MAINTAINER: GWENDOLYN Andrade. ROLE OF PRACTICAL NURSING INSTRUCTOR: Aid in retraction of the procedure, suction of neural elements, aid in decompression and wound closure. ANESTHESIA: General endotracheal. ESTIMATED BLOOD LOSS: Less than 50 mL. INTRAVENOUS FLUIDS: Please see anesthesia record. ANTIBIOTICS: Ancef. COMPLICATIONS: None. SPECIMENS: None. INDICATIONS FOR PROCEDURE: The patient is a 78-year-old male with progressively intolerable back and lower extremity pain, high grade stenosis, failed conservative therapy, desires operative treatment. NEUROMONITORING: Standard intraoperative neuromonitoring carried out by means of real time continuous high quality bidirectional mode, audio and visual communication to both the lift team technician and surgeon by Dr. Fernandez. SSEPS, EMGs, and TOFs carried out continuously throughout the procedure and stable. DESCRIPTION OF PROCEDURE: The patient was brought back to the operative suite. After adequate induction of general anesthesia, preoperative antibiotics, turned prone on Jonny table, careful padding to all extremities, sterilely prepped and draped posterior lumbar spine. Attention directed into the midline where incision was made from L2-L5. Dissection was carried down to the level of the lamina. C-arm was brought in for confirmation of L4-L5 level. Once appropriate level was confirmed, partial 2, complete 3, complete 4 and partial L5 laminectomy, bilateral medial facetectomy and foraminotomy was carried out. Full and adequate decompression was assured. FloSeal and bipolar cautery used to aid hemostasis. Hemostasis assured. Deep drain was placed. Wound was closed in layers. The patient was transferred to recovery room in stable condition, having tolerated the procedure well. Job ID: [id number] DocumentID: [id number] Dictated Date: 09/06/2018 13:03:52 [employer] Executive Date: 09/06/2018 22:20:04 Dictated By: VARUN SOTO MD
[2018-09-07] MEDS: ceFAZolin 2 GM IV Premixed 50 ML IV SCH (02:27)
[2018-09-07 04:41] VITALS: BP 112/54
[2018-09-07] MEDS ORDERED: PANTOPRAZOLE 40 MG (PROTONIX) TAB PO SCH (06:00)
[2018-09-07] MEDS: inSUlin ASPART (NovoLOG) 1 UNIT/0.01 ML (CHARGE PER UNIT) SC SCH (06:02)
[2018-09-07] MEDS: HYDROcodone/APAP 5 MG/325 MG (LORTAB) TAB PO PRN (06:03)
[2018-09-07] MEDS ORDERED: MULTIVIT W/MINERALS TAB (THERAGRAN M) PO SCH (07:00)
[2018-09-07 07:06] LABS: BASOPHILS % (AUTO) 1 % (0-10); EOSINOPHILS # (AUTO) 0.4 10^3/uL (0.0-0.3); EOSINOPHILS % (AUTO) 6 % (0-10); HEMATOCRIT 36 % (40-54); HEMOGLOBIN 11.5 G/DL (13.3-17.7); LYMPHOCYTES # (AUTO) 1.4 X 10^3 (1.0-4.0); LYMPHOCYTES % (AUTO) 18 % (12-44); MEAN CORPUSCULAR HEMOGLOBIN 30 PG (25-34); MEAN CORPUSCULAR HGB CONC 32 G/DL (32-36); MEAN CORPUSCULAR VOLUME 92 FL (80-99); MEAN PLATELET VOLUME 10.4 FL (7.4-10.4); MONOCYTES # (AUTO) 0.9 X 10^3 (0.0-1.0); MONOCYTES % (AUTO) 11 % (0-12); NEUTROPHILS % (AUTO) 65 % (42-75); PLATELET COUNT 186 10^3/uL (130-400); RED BLOOD COUNT 3.85 10^6/uL (4.35-5.85); RED CELL DISTRIBUTION WIDTH 13.6 % (10.0-14.5); WHITE BLOOD COUNT 7.7 10^3/uL (4.3-11.0)
[2018-09-07 07:29] LABS: ALBUMIN 3.4 GM/DL (3.2-4.5); BILIRUBIN,TOTAL 0.6 MG/DL (0.1-1.0); CALCIUM 8.3 MG/DL (8.5-10.1); CREATININE SERUM 1.44 MG/DL (0.60-1.30); POTASSIUM 4.2 MMOL/L (3.6-5.0); TOTAL PROTEIN 5.8 GM/DL (6.4-8.2)
[2018-09-07 08:00] VITALS: BP 122/58
--- NOTE | 2018-09-07 08:44 | Progress Note (SOAP) ---
Subjective Date Seen by a Provider: Sep 07, 2018 Time Seen by a Provider: 08:43 Subjective/Events-last exam Legs feel great, pain controlled, no concerns, ready to go home. Objective Exam Vital Signs Date Time Temp Pulse Resp B/P (MAP) Pulse Ox O2 Delivery O2 Flow Rate FiO2 09/07/18 04:41 99.5 80 18 112/54 (73) 96 Room Air 09/06/18 23:22 98.8 85 16 107/58 (74) 93 Room Air 09/06/18 20:00 99.0 83 20 110/56 (74) 94 Room Air 09/06/18 17:35 96 Room Air 09/06/18 17:19 Room Air 09/06/18 16:00 98.1 70 20 135/77 (96) 96 Room Air 09/06/18 14:30 96.7 62 18 140/75 (96) 95 Room Air 09/06/18 10:36 97.4 70 16 143/80 (101) Room Air I & O 09/07/18 07:00 Intake Total 2190 ml Output Total 1620 ml Balance 570 ml Capillary Refill : General Appearance: No Apparent Distress Respiratory: No Accessory Muscle Use, No Respiratory Distress Cardiovascular: Normal Peripheral Pulses Neurologic/Psychiatric: Alert, Oriented x3, No Motor/Sensory Deficits, Normal Mood/Affect Results Lab Laboratory Tests 09/06/18 09:35: Glucometer 100 09/06/18 16:09: Glucometer 74 09/06/18 20:20: Glucometer 92 09/07/18 05:24: Glucometer 97 09/07/18 06:31: White Blood Count 7.7, Red Blood Count 3.85L, Hemoglobin 11.5L, Hematocrit 36L, Mean Corpuscular Volume 92, Mean Corpuscular Hemoglobin 30, Mean Corpuscular Hemoglobin Concent 32, Red Cell Distribution Width 13.6, Platelet Count 186, Mean Platelet Volume 10.4, Neutrophils (%) (Auto) 65, Lymphocytes (%) (Auto) 18 , Monocytes (%) (Auto) 11, Eosinophils (%) (Auto) 6, Basophils (%) (Auto) 1, Neutrophils # (Auto) 5.0, Lymphocytes # (Auto) 1.4, Monocytes # (Auto) 0.9, Eosinophils # (Auto) 0.4H, Basophils # (Auto) 0.0 09/07/18 06:33: Sodium Level 139, Potassium Level 4.2, Chloride Level 109H, Carbon Dioxide Level 22, Anion Gap 8, Blood Urea Nitrogen 22H, Creatinine 1.44H, Estimat Glomerular Filtration Rate 48, BUN/Creatinine Ratio 15, Glucose Level 107H, Calcium Level 8.3L, Corrected Calcium 8.8, Total Bilirubin 0.6, Aspartate Amino Transf (AST/SGOT) 17, Alanine Aminotransferase (ALT/SGPT) 13, Alkaline Phosphatase 66, Total Protein 5.8L, Albumin 3.4 Assessment/Plan Assessment/Plan Assess & Plan/Chief Complaint Lumbar Stenosis, Neuro claudication Plan: D/C Home, instructions given Clinical Quality Measures DVT/VTE Risk/Contraindication: Risk Factor Score Per Nursin RFS Level Per Nursing on Admit: 4+=Very High MARY ANN ALARCON MD Sep 07, 2018 08:44
[2018-09-07] MEDS ORDERED: ACHD5005 PO (08:46)
[2018-09-07] MEDS ORDERED: BACL10TA PO (09:00)
[2018-09-07 10:09] VITALS: BP 122/58
--- NOTE | 2018-09-07 18:09 | Anesthesia-General Post-Op ---
General Patient Condition Mental Status/LOC: Same as Preop Cardiovascular: Satisfactory Nausea/Vomiting: Absent Respiratory: Satisfactory Pain: Controlled Complications: Absent Post Op Complications Complications None Follow Up Care/Instructions Patient Instructions None needed. Anesthesia/Patient Condition Patient Condition Patient is doing well, no complaints, stable vital signs, no apparent adverse anesthesia problems. No complications reported per nursing. D/C home per [facility] [place] Criteria: Yes GUILLERMO BYRD CRNA Sep 07, 2018 18:09
== END 2018-09-07 09:35 | disposition home or self-care (01) ==
LOC: SDC 09:19 → 4TH 14:30 → SDC 09-07 09:35
PROVIDERS: ATTEND Orthopaedic Surgery Orthopaedic Surgery of the Spine
DX: M48.062 Spinal stenosis, lumbar region with neurogenic claudication (principal); M51.16 Intervertebral disc disorders with radiculopathy, lumbar region; R73.03 Prediabetes; I10 Essential (primary) hypertension; J45.909 Unspecified asthma, uncomplicated; K21.9 Gastro-esophageal reflux disease without esophagitis; G47.33 Obstructive sleep apnea (adult) (pediatric); E66.9 Obesity, unspecified; Z68.34 Body mass index [BMI] 34.0-34.9, adult; Z87.891 Personal history of nicotine dependence; Z79.82 Long term (current) use of aspirin; Z79.899 Other long term (current) drug therapy
CPT/HCPCS: 36415; 80053; 82962; 85025; 94664

== ENCOUNTER → 2019-08-25 | Outpatient (CLI) | payer MEDICARE ==
[~2019-08-25] MED LIST changes: +ACHD5005 PO; +BACL10TA PO; -DULO30CA48 PO; +DULO30CA49 PO; +OMEP20CA13 PO
[2019-08-25 07:20] LABS: CREATININE SERUM 1.92 MG/DL (0.60-1.30)
--- NOTE | 2019-08-25 08:48 | Diagnostic Imaging Report ---
PROCEDURE: CT chest without contrast. TECHNIQUE: Multiple contiguous axial images were obtained through the chest without the use of intravenous contrast. Auto Exposure Controls were utilized during the CT exam to meet ALARA standards for radiation dose reduction. All CT scans use one or more of the following dose optimizing techniques: automated exposure control, MA and/or KvP adjustment based on a patient size and exam type, or iterative reconstruction. INDICATION: Acute bronchitis and shortness of breath. No prior CT chest studies are available for comparison. FINDINGS: No axillary lymphadenopathy is detected. Normal-sized lymph nodes within the mediastinum are identified. No hilar mass is detected. No pericardial or pleural fluid is detected. Central airways appear to be patent. Pulmonary parenchymal evaluation demonstrates minimal infiltrate versus atelectasis in the lingula and subpleural left lower lobe laterally. No discrete mass is identified. The upper abdomen is unremarkable. Thoracic spine does show multilevel spondylosis and osteophyte formation. No acute compression fracture is seen. IMPRESSION: 1. There is some very mild infiltrate versus atelectasis or scarring in the lingula and left lower lobe. Otherwise, the lungs are clear. No thoracic lymphadenopathy is detected. Dictated by: Dictated on workstation # [id number]
== END ==
LOC: RAD 06:40
PROVIDERS: ATTEND Internal Medicine Critical Care Medicine
DX: J20.9 Acute bronchitis, unspecified (principal)
CPT/HCPCS: 36415; 71250; 82565; 84520

== ENCOUNTER → 2019-08-27 | Outpatient (CLI) | payer MEDICAID, MEDICARE ==
--- NOTE | 2019-08-27 09:26 | Diagnostic Imaging Report ---
INDICATION: Leg swelling Bilateral lower extremity venous Doppler study performed in routine fashion with color flow Doppler and waveform analysis. On the right side, the common femoral vein and profunda femoris vein and SFV were patent and compressible. There is complete thrombosis of the right popliteal vein with extension to the calf veins. On the left side, the common femoral vein, profunda femoris vein, and SFV were patent. The left popliteal vein and visualized portions of the calf veins are patent. IMPRESSION: Evidence of acute deep vein thrombosis involving the right popliteal vein with extension into the calf veins. Remaining structures were patent. Dictated by: Dictated on workstation # [id number]
== END ==
LOC: RAD 07:54
PROVIDERS: ATTEND Nurse Practitioner Family
DX: M79.89 Other specified soft tissue disorders (principal); J41.0 Simple chronic bronchitis; J45.909 Unspecified asthma, uncomplicated; Z87.891 Personal history of nicotine dependence
CPT/HCPCS: 93970

== ENCOUNTER → 2019-08-29 | Outpatient (CLI) | payer MEDICARE ==
[~2019-08-29] MED LIST changes: +LISI1TAB29 PO; +OMEP-280 PO; -OMEP20CA13 PO; +SIMV10TA26 PO; -SIMV10TA3 PO
== END ==
LOC: CARD 14:04
PROVIDERS: ATTEND Nurse Practitioner Family
DX: I08.1 Rheumatic disorders of both mitral and tricuspid valves (principal); J45.909 Unspecified asthma, uncomplicated; J41.0 Simple chronic bronchitis; G47.33 Obstructive sleep apnea (adult) (pediatric); Z87.891 Personal history of nicotine dependence
CPT/HCPCS: 93306

== ENCOUNTER → 2019-09-03 | Outpatient (CLI) | payer MEDICARE ==
[2019-09-03 11:04] LABS: BASOPHILS # (AUTO) 0.1 10^3/uL (0.0-0.1); BASOPHILS % (AUTO) 1 % (0-10); EOSINOPHILS # (AUTO) 0.4 10^3/uL (0.0-0.3); EOSINOPHILS % (AUTO) 4 % (0-10); HEMATOCRIT 41 % (40-54); HEMOGLOBIN 13.4 G/DL (13.3-17.7); LYMPHOCYTES # (AUTO) 2.2 X 10^3 (1.0-4.0); LYMPHOCYTES % (AUTO) 23 % (12-44); MEAN CORPUSCULAR HEMOGLOBIN 29 PG (25-34); MEAN CORPUSCULAR HGB CONC 33 G/DL (32-36); MEAN CORPUSCULAR VOLUME 88 FL (80-99); MEAN PLATELET VOLUME 9.3 FL (7.4-10.4); MONOCYTES % (AUTO) 10 % (0-12); NEUTROPHILS # (AUTO) 5.8 X 10^3 (1.8-7.8); NEUTROPHILS % (AUTO) 61 % (42-75); PLATELET COUNT 280 10^3/uL (130-400); RED CELL DISTRIBUTION WIDTH 15.6 % (10.0-14.5); WHITE BLOOD COUNT 9.5 10^3/uL (4.3-11.0)
[2019-09-03 11:21] LABS: ALBUMIN 4.1 GM/DL (3.2-4.5); BILIRUBIN,TOTAL 0.5 MG/DL (0.1-1.0); CALCIUM 9.3 MG/DL (8.5-10.1); CREATININE SERUM 1.62 MG/DL (0.60-1.30); POTASSIUM 4.3 MMOL/L (3.6-5.0); TOTAL PROTEIN 7.2 GM/DL (6.4-8.2)
[2019-09-03 12:26] LABS: ERYTHROCYTE SEDIMENTATION RATE 20 MM/HR (0-30)
== END ==
LOC: LAB 10:50
PROVIDERS: ATTEND Internal Medicine Cardiovascular Disease
DX: I25.10 Atherosclerotic heart disease of native coronary artery without angina pectoris (principal); I42.8 Other cardiomyopathies; I50.32 Chronic diastolic (congestive) heart failure; E78.5 Hyperlipidemia, unspecified; I11.0 Hypertensive heart disease with heart failure; G47.33 Obstructive sleep apnea (adult) (pediatric)
CPT/HCPCS: 36415; 80053; 83735; 83880; 85025; 85652

== ENCOUNTER → 2019-09-03 | Outpatient (CLI) | payer MEDICARE ==
[~2019-09-03] MED LIST changes: +RT-ALBUTEROL SULF 2.5 MG/3 ML PRE-MIX VIAL INH ONE
== END ==
LOC: RT 07:51
PROVIDERS: ATTEND Nurse Practitioner Family
DX: J45.909 Unspecified asthma, uncomplicated (principal); G47.33 Obstructive sleep apnea (adult) (pediatric); R91.8 Other nonspecific abnormal finding of lung field; J41.0 Simple chronic bronchitis; Z87.891 Personal history of nicotine dependence
CPT/HCPCS: 94060; 94726; 94729

== ENCOUNTER → 2020-02-23 | Outpatient (CLI) | payer MEDICARE ==
[~2020-02-23] MED LIST changes: -OMEP-280 PO; +OMEP20CA18 PO; -RT-ALBUTEROL SULF 2.5 MG/3 ML PRE-MIX VIAL INH ONE
--- NOTE | 2020-02-23 11:26 | Diagnostic Imaging Report ---
PROCEDURE: CT chest without contrast. TECHNIQUE: Multiple contiguous axial images were obtained through the chest without the use of intravenous contrast. Auto Exposure Controls were utilized during the CT exam to meet ALARA standards for radiation dose reduction. INDICATION: Shortness of breath There is a 3 mm lobulated nodular opacity in the superior segment of the right lower lobe seen on page 67 series 3. This is slightly more prominent than comparison study from 08/25/2019. There is a 5 mm nodular opacity in the superior segment left lower lobe seen on page 60 series 3 that is stable from the previous exam. There is some focal pleural thickening in the posterior medial aspect of the left lower lung. This is stable from the prior study. There is minimal coronary calcific atherosclerosis. There is a small mediastinal lymph nodes that are unchanged from prior exam. There are no effusions or pneumothoraces. IMPRESSION: Stable pleural thickening and nodular lesion left lower lung. The lingular consolidation has cleared since the prior study. There is a small lobulated nodular opacity in the superior segment of the right upper lobe that is new or more apparent. Recommend follow-up per Fleischner Society guidelines. Dictated by: Dictated on workstation # [id number]
--- NOTE | 2020-02-23 11:50 | Diagnostic Imaging Report ---
PROCEDURE: US Venous Lower Ext [place]. TECHNIQUE: Multiple Real-time grayscale images were obtained over the lower extremities in various projections, bilaterally. Additional duplex Doppler and color Doppler images were also obtained. INDICATION: Prior history of DVT. Patient has bilateral lower extremity swelling today. FINDINGS: There is no evidence of right or left lower extremity DVT. Both lower extremity deep venous systems demonstrate normal compressibility with normal response to augmentation and Valsalva. No fluid collection or mass is detected. IMPRESSION: No evidence of right or left lower extremity DVT. Dictated by: Dictated on workstation # [id number]
== END ==
LOC: RAD 09:17
PROVIDERS: ATTEND Nurse Practitioner Family
DX: J98.4 Other disorders of lung (principal); J92.9 Pleural plaque without asbestos; J41.0 Simple chronic bronchitis; J45.909 Unspecified asthma, uncomplicated; M79.89 Other specified soft tissue disorders; R91.8 Other nonspecific abnormal finding of lung field; R91.1 Solitary pulmonary nodule; Z87.891 Personal history of nicotine dependence; Z86.718 Personal history of other venous thrombosis and embolism
CPT/HCPCS: 71250; 93970

== ENCOUNTER → 2020-09-08 | Outpatient (CLI) | payer MEDICARE ==
--- NOTE | 2020-09-08 15:10 | Diagnostic Imaging Report ---
PROCEDURE: CT chest without contrast. TECHNIQUE: Multiple contiguous axial images were obtained through the chest without the use of intravenous contrast. Auto Exposure Controls were utilized during the CT exam to meet ALARA standards for radiation dose reduction. DATE: September 08, 2020. COMPARISON: CT chest February 23, 2020. August 25, 2019. INDICATION: 80-year-old male, follow-up pulmonary nodules. PROCEDURE: Axial noncontrasted CT images of the chest. Noncontrasted limits the evaluation of the mediastinum and vascular structures. FINDINGS: There is a 4 mm left lower lobe pulmonary nodule on axial image 110. This is unchanged since August 25, 2019. There is a stable 3 mm noncalcified right upper lobe pulmonary nodule on axial image 22. There is mild focal scarring in the right lower lobe and left lower lobe. There is no new or enlarging pulmonary nodule. There is no otherwise noted focal airspace consolidation. There is no pneumothorax. There is no pleural effusion. The central airways are patent. The heart is not enlarged. There is no pericardial effusion. There are coronary artery calcifications and additional areas of atherosclerotic disease. There is no identified abnormally enlarged mediastinal or axillary lymph node meeting CT size criteria for adenopathy. Evaluation of the imaged portions of the upper abdomen is unremarkable. There are multilevel degenerative changes of the spine. There is no identified acute bony abnormality. IMPRESSION: 1. 4 mm left lower lobe pulmonary nodule and 3 mm right upper lobe pulmonary nodule, stable since August 2019. Recommend follow-up CT chest in one year to document two year stability. 2. Very mild scarring in the right and left lower lobes. 3. No acute cardiopulmonary abnormality. 4. No new or enlarging pulmonary nodule. Dictated by: Dictated on workstation # [id number]
== END ==
LOC: RAD 14:02
PROVIDERS: ATTEND Nurse Practitioner Family
DX: J45.909 Unspecified asthma, uncomplicated (principal); R91.8 Other nonspecific abnormal finding of lung field
CPT/HCPCS: 71250

== ENCOUNTER → 2020-11-01 | Outpatient (CLI) | payer MEDICARE ==
--- NOTE | 2020-11-01 13:54 | Diagnostic Imaging Report ---
PROCEDURE: US right lower extremity venous. TECHNIQUE: Multiple real-time grayscale images were obtained over the right lower extremity in various projections. Additional spectral analysis and color Doppler duplex images were also obtained. INDICATION: Pain and swelling FINDINGS: The common femoral-femoral popliteal and tibial veins demonstrate normal response to compression, augmentation Valsalva. There is some superficial thrombophlebitis within a calf vein, which is a branch of the greater saphenous. There are no abnormal fluid collections or masses. IMPRESSION: No evidence of deep venous thrombosis in right lower extremity. Superficial thrombophlebitis in a calf vein. Dictated by: Dictated on workstation # [id number]
== END ==
LOC: RAD 11:49
PROVIDERS: ATTEND Emergency Medicine
DX: M79.661 Pain in right lower leg (principal); M79.89 Other specified soft tissue disorders; Z86.718 Personal history of other venous thrombosis and embolism

== ENCOUNTER 2022-02-05 19:28 | Inpatient (IN) | payer MEDICARE ==
[~2022-02-05] VITALS: Ht 180 cm; Wt 106.7 kg
[~2022-02-05 19:28] MED LIST changes: -LISI1TAB29 PO; +LISI1TAB44 PO
--- NOTE | 2022-02-05 19:44 | ED Respiratory ---
General Chief Complaint: Respiratory Problems Stated Complaint: SOB Source: patient Exam Limitations: no limitations History of Present Illness Date Seen by Provider: Feb 05, 2022 Time Seen by Provider: 19:29 Initial Comments Patient presents ER by private conveyance with his son with chief complaint that since last night he started having some shortness of air and noticing some swelling in his right lower extremity. He had a DVT a year or so ago and was put on Eliquis for 6 months. He does have a history of COPD and a distant history over 20 years ago of smoking cigarettes. He took a DuoNeb and said it did not make him feel any better. His son came and checked on him and said his oxygen sats were 90 to 91% while at rest but he was breathing fast 32 to 34 breaths a minute and when he would get up and walk across the street his sats would fall down to 85%. He is not had any cough fevers chills nausea vomiting chest pain abdominal pain or diarrhea. No hemoptysis. He does have a history of congestive heart failure with recovered ejection fraction down to 30% up to 55%. He is followed by Dr. Ashby cardiology and had a checkup 2 weeks ago and everything was okay. He had a clean heart cath [address] Ashby demonstrating angiographically relatively vasculature and a mildly elevated left ventricular end-diastolic pressure. Latest echocardiogram by Dr. Galicia demonstrated an EF of 60 to 65% with grade 1 diastolic dysfunction. He did take to 81 mg aspirin earlier today. Allergies and Home Medications Allergies Coded Allergies: metformin (Verified Allergy, Intermediate, FLU LIKE SYMPTOMS, 09/02/18) Patient Home Medication List Home Medication List Reviewed: Yes Allopurinol (Allopurinol) 100 Mg Tablet, 100 MG PO DAILY, (Reported) Entered as Reported by: TRAVIS CADE on 09/02/18902 Last Action: Last Taken Edited Aspirin (Aspirin) 81 Mg Tab.chew, 81 MG PO DAILY, (Reported) Entered as Reported by: TRAVIS CADE on 09/02/18902 Last Action: Last Taken Edited Escitalopram Oxalate (Escitalopram Oxalate) 10 Mg Tablet, (Reported) Entered as Reported by: RICHELLE AGUDELO on 02/05/221947 Last Action: New Order Lisinopril/Hydrochlorothiazide (Lisinopril-Hctz 10-12.5 mg Tab) 1 Each Tablet, 1 EACH PO DAILY, (Reported) Entered as Reported by: TRAVIS CADE on 09/02/18902 Last Action: Last Taken Edited Omeprazole (Omeprazole) 20 Mg Capsule., 20 MG PO DAILY, (Reported) Entered as Reported by: TRAVIS CADE on 09/02/18902 Last Action: Last Taken Edited Discontinued Medications Baclofen (Baclofen) 10 Mg Tablet, 10 MG PO TID PRN for SPASMS Discontinued Reason: No Longer Taking Prescribed by: MARY ANN ALARCON on 09/07/18899 Last Action: Discontinued Duloxetine HCl (Duloxetine HCl) 30 Mg Capsule., 30 MG PO DAILY, (Reported) Discontinued Reason: No Longer Taking Entered as Reported by: TRAVIS CADE on 09/02/18902 Last Action: Discontinued Hydrocodone Bit/Acetaminophen (Lortab 5 Mg Tablet) 1 Tab Tab, 1-2 TAB PO Q4H PRN for PAIN-MODERATE TO SEVERE Discontinued Reason: No Longer Taking Prescribed by: MARY ANN ALARCON on 09/07/18845 Last Action: Discontinued Liraglutide (Victoza 2-Kasi) 0.6 Mg/0.1 Ml Pen.injctr, 1.8 MG SQ DAILY, (Reported) Discontinued Reason: No Longer Taking Entered as Reported by: TRAVIS CADE on 09/02/18930 Last Action: Discontinued Metoprolol Tartrate (Metoprolol Tartrate) 25 Mg Tablet, 25 MG PO BID, (Reported) Discontinued Reason: No Longer Taking Entered as Reported by: TRAVIS CADE on 09/02/18902 Last Action: Discontinued Simvastatin (Simvastatin) 10 Mg Tablet, 10 MG PO DAILY, (Reported) Discontinued Reason: No Longer Taking Entered as Reported by: TRAVIS CADE on 09/02/18902 Last Action: Discontinued Review of Systems Review of Systems Constitutional: No chills, No diaphoresis EENTM: No ear discharge, No ear pain Respiratory: No cough; short of breath; No wheezing Cardiovascular: No chest pain, No edema, No Hx of Intervention, No palpitations; syncope (Near syncope last night while in the chair.) Gastrointestinal: No abdominal pain, No nausea Genitourinary: No discharge, No dysuria Musculoskeletal: No back pain, No joint pain All Other Systems Reviewed Negative Unless Noted: Yes Past Gzbsewj-Nifzjd-Hshnjp Hx Patient Social History Tobacco Use?: No Tobacco type used: Cigarettes Smoking Status: Former Smoker Use of E-Cig and/or Vaping dev: No Substance use?: No Seasonal Allergies Seasonal Allergies: No Past Medical History Surgeries: Yes ( sinus surgery, Rt ear tube placement) Orthopedic, Tonsillectomy Respiratory: Yes Sleep Apnea Currently Using CPAP: Yes Cardiac: Yes (CHF) High Cholesterol, Hypertension Neurological: Yes (NUMBNESS LEFT LEG) Reproductive Disorders: Yes (takes testosterone injections) Sexually Transmitted Disease: No HIV/AIDS: No Genitourinary: Yes Kidney Stones Gastrointestinal: Yes (HX COLITIS-PER COLONOSCOPY) Colitis, Gastroesophageal Reflux Musculoskeletal: Yes (LUMBAR STENOSIS) Endocrine: Yes Diabetes, Non-Insulin dep HEENT: Yes (GLASSES) Loss of Vision: Bilateral Hearing Impairment: Bilateral Hearing Aide Cancer: No Psychosocial: No Anxiety, Depression Integumentary: No Blood Disorders: No Adverse Reaction/Blood Tranf: No (N/A) Family Medical History Hypertension Physical Exam Vital Signs - First Documented 02/05/22 19:29 Temp 36.2 Pulse 117 Resp 22 B/P (MAP) 145/89 (107) Pulse Ox 94 O2 Delivery Room Air O2 Flow Rate 2.00 Capillary Refill : Height: 5'11.00" Weight: 245lbs. 4.0oz. 111.818405nx; 34.2 BMI Method:Stated General Appearance: WD/WN, moderate distress Eyes: Bilateral Eye Normal Inspection, Bilateral Eye PERRL, Bilateral Eye EOMI HEENT: PERRL/EOMI, normal ENT inspection; No pharynx normal (Mildly dry oral mucosa) Neck: full range of motion, supple, normal inspection Respiratory: lungs clear, normal breath sounds, respiratory distress (90% on room air with deep respiratory movement, rate of 34.), accessory muscle use Cardiovascular: normal peripheral pulses, regular rate, rhythm, tachycardia (110) Gastrointestinal: normal bowel sounds, non tender, soft Extremities: normal range of motion, non-tender, normal inspection, normal capillary refill Neurologic/Psychiatric: alert, normal mood/affect, oriented x 3 Skin: normal color, warm/dry Progress/Results/Core Measures Suspected Sepsis SIRS Temperature: Pulse: Respiratory Rate: Laboratory Tests 02/05/22 19:38: White Blood Count 12.4H Blood Pressure / Mean: Laboratory Tests 02/05/22 19:38: Creatinine 2.05H, INR Comment 1.0, Platelet Count 233, Total Bilirubin 0.6 Results/Orders Lab Results Laboratory Tests Test 02/05/22 19:37 02/05/22 19:38 02/05/22 19:45 Range/Units Influenza Type A (RT-PCR) Not Detected Not Detecte Influenza Type B (RT-PCR) Not Detected Not Detecte SARS-CoV-2 RNA (RT-PCR) Not Detected Not Detecte White Blood Count 12.4 H 4.3-11.0 10^3/uL Red Blood Count 5.09 4.30-5.52 10^6/uL Hemoglobin 15.1 13.3-17.7 g/dL Hematocrit 46 40-54 % Mean Corpuscular Volume 90 80-99 fL Mean Corpuscular Hemoglobin 30 25-34 pg Mean Corpuscular Hemoglobin Concent 33 32-36 g/dL Red Cell Distribution Width 13.2 10.0-14.5 % Platelet Count 233 130-400 10^3/uL Mean Platelet Volume 9.6 9.0-12.2 fL Immature Granulocyte % (Auto) 0 % Neutrophils (%) (Auto) 75 42-75 % Lymphocytes (%) (Auto) 16 12-44 % Monocytes (%) (Auto) 6 0-12 % Eosinophils (%) (Auto) 1 0-10 % Basophils (%) (Auto) 1 0-10 % Neutrophils # (Auto) 9.4 H 1.8-7.8 10^3/uL Lymphocytes # (Auto) 2.0 1.0-4.0 10^3/uL Monocytes # (Auto) 0.8 0.0-1.0 10^3/uL Eosinophils # (Auto) 0.1 0.0-0.3 10^3/uL Basophils # (Auto) 0.1 0.0-0.1 10^3/uL Immature Granulocyte # (Auto) 0.0 0.0-0.1 10^3/uL Prothrombin Time 13.9 12.2-14.7 SEC INR Comment 1.0 0.8-1.4 D-Dimer 13.82 H 0.00-0.49 UG/ML Sodium Level 141 135-145 MMOL/L Potassium Level 4.3 3.6-5.0 MMOL/L Chloride Level 107 98-107 MMOL/L Carbon Dioxide Level 20 L 21-32 MMOL/L Anion Gap 14 5-14 MMOL/L Blood Urea Nitrogen 22 H 7-18 MG/DL Creatinine 2.05 H 0.60-1.30 MG/DL Estimat Glomerular Filtration Rate 32 BUN/Creatinine Ratio 11 Glucose Level 190 H 70-105 MG/DL Calcium Level 9.3 8.5-10.1 MG/DL Corrected Calcium 9.1 8.5-10.1 MG/DL Total Bilirubin 0.6 0.1-1.0 MG/DL Aspartate Amino Transf (AST/SGOT) 18 5-34 U/L Alanine Aminotransferase (ALT/SGPT) 31 0-55 U/L Alkaline Phosphatase 66 40-136 U/L Troponin I 0.329 *H <0.028 NG/ML C-Reactive Protein High Sensitivity 0.80 H 0.00-0.50 MG/DL B-Type Natriuretic Peptide 333.4 H <100.0 PG/ML Total Protein 7.7 6.4-8.2 GM/DL Albumin 4.2 3.2-4.5 GM/DL Procalcitonin 0.04 <0.10 NG/ML Bedside Blood Gas pH (LAB) 7.423 H 7.310-7.410 Bedside Blood Gas pCO2 (LAB) 28.0 L 41.0-51.0 mmHg Bedside Blood Gas pO2 (LAB) 123 H 80-105 mmHg Bedside Blood Gas HCO3 (LAB) 18.3 L 23.0-28.0 mmol/L POC Blood Gas Total CO2 Calc 19 L 24-29 mmol/L Bedside Bl Gas O2 Saturation (Calc) 99 H 95-98 % Bedside Arterial Blood Base Excess -6 L -2-3 mmol/L My Orders Orders - JOSLYN BACA Ekg Tracing (02/05/22 19:35) Cbc With Automated Diff (02/05/22 19:36) Comprehensive Metabolic Panel (02/05/22 19:36) Hs C Reactive Protein (02/05/22 19:36) Covid 19 Inhouse Test (02/05/22 19:36) Bnp [place] (02/05/22 19:36) Troponin I Luis Fernando (02/05/22 19:36) Influenza A And B By Pcr (02/05/22 19:36) Procalcitonin (Pct) (02/05/22 19:36) Fibrin Degradation Products (02/05/22 19:36) Protime With Inr (02/05/22 19:36) Chest 1 View, Ap/Pa Only (02/05/22 19:37) Ed Iv/Invasive Line Start (02/05/22 20:28) Ns Iv 500 Ml (Sodium Chloride 0.9%) (02/05/22 20:30) Apixaban Tablet (Eliquis Tablet) (02/05/22 21:15) Medications Given in ED Current Medications Medications Dose Ordered Sig/Cara Route Start Time Stop Time Status Last Admin Dose Admin Sodium Chloride 500 ml @ 0 mls/hr Q0M ONCE IV 02/05/22 20:30 02/05/22 20:31 DC 02/05/22 20:35 0 MLS/HR Vital Signs/I&O 02/05/22 02/05/22 19:29 19:29 Temp 36.2 Pulse 117 Resp 22 B/P (MAP) 145/89 (107) Pulse Ox 94 O2 Delivery Room Air Nasal Cannula O2 Flow Rate 2.00 Capillary Refill : Progress Note #1: Time: 19:47 Progress Note Concern for pulmonary embolism, heart failure, less likely coronary disease, pneumonia. He is not experiencing any pain. Will check some labs and see if we can get a CT angiogram. We will get a D-dimer, procalcitonin and CRP to help rule out signs of infection. We will check him for COVID-19 and obtain an ABG. Chest x-ray. He is covered with an antiplatelet with the aspirin he took. The patient's family will bring the BiPAP from home. Progress Note #2: Time: 20:30 Progress Note Patient is a little on the dry side. Soon as his D-dimer comes back with Dr. Dr. Tucker about an observation admission for his hypoxemia and potential VQ scan this week. Plan to give him 500 cc of normal saline and some p.o. fluids. ECG Initial ECG Impression Date: Feb 05, 2022 Initial ECG Impression Time: 19:40 Initial ECG Rate: 101 Initial ECG Rhythm: S.Tach Initial ECG Intervals: Normal Initial ECG Impression: Normal, Nonspecific Changes Initial ECG Comparisson: Changed Comment Marginal ST elevation of one half block in the anterior leads V1, V2 and slightly in V3. No clinically relevant ST changes. Sinus tachycardia. The subtle ST elevation findings are not preserved from previous EKG 3 years ago and likely represents hypoxic distress. Diagnostic Imaging Diagonstic Imaging: Xray Plain Films/CT/US/NM/MRI: chest Comments NAME: SIMON SINGH [facility] REC#: [id number] PT STATUS: REG ER : 1940 PHYSICIAN: JOSLYN BACA MD ADMIT DATE: 02/05/22/ER Draft Date of Exam:02/05/22 CHEST 1 VIEW, AP/PA ONLY INDICATION: Increasing shortness of air with exertion. History of blood clots off blood thinners. EXAMINATION: Chest, 02/05/2022. FINDINGS: The heart is enlarged. Pulmonary vasculature is normal. There is left base atelectasis. Remaining lungs clear. No effusion. No infiltrate. No pneumothorax. IMPRESSION: 1. Minimal left base atelectasis. 2. Cardiomegaly. Dictated on workstation # [id number] Dict: 02/05/222007 Trans: 02/05/222011 E [id number] Interpreted by: SHANE ROMERO MD Electronically signed by: Reviewed: Reviewed by Me Departure Communication (Admissions) Time/Spoke to Admitting Phy: 21:00 Discussed the case with Dr. Aguirre and he agrees to take the patient on and set up for US in AM. Eliquis full dose for DVT/PE treatment. Impression Primary Impression: Acute on chronic respiratory failure with hypoxemia Additional Impression: Suspected pulmonary embolism Disposition: ADMITTED INPATIENT Condition: Stable Admissions Decision to Admit Reason: Admit from ER (General) Decision to Admit/Date: Feb 05, 2022 Time/Decision to Admit Time: 20:16 Departure-Patient Inst. Referrals: SAADIA SRINIVASAN MD (PCP/Family) Primary Care Physician Copy Copies To 1: SAADIA SRINIVASAN MD, TITUS J Feb 05, 2022 19:44
[2022-02-05 19:48] LABS: BASOPHILS # (AUTO) 0.1 10^3/uL (0.0-0.1); BASOPHILS % (AUTO) 1 % (0-10); EOSINOPHILS # (AUTO) 0.1 10^3/uL (0.0-0.3); EOSINOPHILS % (AUTO) 1 % (0-10); HEMATOCRIT 46 % (40-54); HEMOGLOBIN 15.1 g/dL (13.3-17.7); LYMPHOCYTES % (AUTO) 16 % (12-44); MEAN CORPUSCULAR HEMOGLOBIN 30 pg (25-34); MEAN CORPUSCULAR HGB CONC 33 g/dL (32-36); MEAN CORPUSCULAR VOLUME 90 fL (80-99); MEAN PLATELET VOLUME 9.6 fL (9.0-12.2); MONOCYTES # (AUTO) 0.8 10^3/uL (0.0-1.0); MONOCYTES % (AUTO) 6 % (0-12); NEUTROPHILS # (AUTO) 9.4 10^3/uL (1.8-7.8); NEUTROPHILS % (AUTO) 75 % (42-75); PLATELET COUNT 233 10^3/uL (130-400); WHITE BLOOD COUNT 12.4 10^3/uL (4.3-11.0)
[2022-02-05] MEDS ORDERED: ESCI-2 PO (19:48)
[2022-02-05 20:10] LABS: ALBUMIN 4.2 GM/DL (3.2-4.5); BILIRUBIN,TOTAL 0.6 MG/DL (0.1-1.0); CALCIUM 9.3 MG/DL (8.5-10.1); CREATININE SERUM 2.05 MG/DL (0.60-1.30); POTASSIUM 4.3 MMOL/L (3.6-5.0); TOTAL PROTEIN 7.7 GM/DL (6.4-8.2)
[2022-02-05 20:12] LABS: FIBRIN DEGRADATION PRODUCTS 13.82 UG/ML (0.00-0.49); PROTHROMBIN TIME PATIENT 13.9 SEC (12.2-14.7)
--- NOTE | 2022-02-05 20:13 | Diagnostic Imaging Report ---
INDICATION: Increasing shortness of air with exertion. History of blood clots off blood thinners. EXAMINATION: Chest, 02/05/2022. FINDINGS: The heart is enlarged. Pulmonary vasculature is normal. There is left base atelectasis. Remaining lungs clear. No effusion. No infiltrate. No pneumothorax. IMPRESSION: 1. Minimal left base atelectasis. 2. Cardiomegaly. Dictated by: Dictated on workstation # [id number]
[2022-02-05] MEDS ORDERED: NS IV 500 ML 500 ML IV ONE (20:30)
[2022-02-05] MEDS ORDERED: APIXABAN 5 MG (ELIQUIS) TABLET PO ONE (21:15)
[2022-02-05] MEDS ORDERED: ACETAMINOPHEN 500 MG TAB (TYLENOL) PO ONE (21:45)
[2022-02-05 21:56] VITALS: BP 136/95
[2022-02-05 22:00] VITALS: BP 127/93
[2022-02-05] MEDS ORDERED: ACETAMINOPHEN 325 MG TABLET PO PRN (22:30)
[2022-02-05 22:33] VITALS: BP 145/87
[2022-02-05 23:00] VITALS: BP 120/81
[2022-02-05] MEDS ORDERED: RT-ALBUTEROL/IPRATROPIUM 3 ML (DUONEB) VIAL INH PRN (23:00)
[2022-02-06] VITALS (11 sets, daily range): BP systolic 82–125; BP diastolic 55–89
[2022-02-06 03:12] LABS: BASOPHILS # (AUTO) 0.1 10^3/uL (0.0-0.1); BASOPHILS % (AUTO) 1 % (0-10); EOSINOPHILS # (AUTO) 0.4 10^3/uL (0.0-0.3); EOSINOPHILS % (AUTO) 3 % (0-10); HEMATOCRIT 41 % (40-54); HEMOGLOBIN 13.8 g/dL (13.3-17.7); LYMPHOCYTES # (AUTO) 3.6 10^3/uL (1.0-4.0); LYMPHOCYTES % (AUTO) 31 % (12-44); MEAN CORPUSCULAR HEMOGLOBIN 30 pg (25-34); MEAN CORPUSCULAR HGB CONC 33 g/dL (32-36); MEAN CORPUSCULAR VOLUME 89 fL (80-99); MEAN PLATELET VOLUME 9.9 fL (9.0-12.2); MONOCYTES # (AUTO) 0.8 10^3/uL (0.0-1.0); MONOCYTES % (AUTO) 7 % (0-12); NEUTROPHILS # (AUTO) 6.5 10^3/uL (1.8-7.8); NEUTROPHILS % (AUTO) 57 % (42-75); PLATELET COUNT 207 10^3/uL (130-400); WHITE BLOOD COUNT 11.4 10^3/uL (4.3-11.0)
[2022-02-06 03:21] LABS: POTASSIUM 4.2 MMOL/L (3.6-5.0)
[2022-02-06 03:22] LABS: CALCIUM 8.7 MG/DL (8.5-10.1)
[2022-02-06 03:27] LABS: CREATININE SERUM 1.84 MG/DL (0.60-1.30)
[2022-02-06] MEDS: CATHETER FLUSH 10 ML SYR IVP SCH ×3 (06:00→20:58)
--- NOTE | 2022-02-06 07:29 | Diagnostic Imaging Report ---
PATIENT HISTORY: Shortness of air. TECHNIQUE: Single frontal view of the chest. COMPARISON: 02/05/2022 FINDINGS: The lung volumes are normal. No focal consolidation is seen. No large pleural effusion or pneumothorax is seen. The cardiomediastinal silhouette is normal in size and contour. No acute osseous abnormality is seen. IMPRESSION: No acute pulmonary abnormality seen. Dictated by: Dictated on workstation # [id number]
[2022-02-06] MEDS: RT-ALBUTEROL/IPRATROPIUM 3 ML (DUONEB) VIAL INH SCH ×2 (08:01→18:31)
--- NOTE | 2022-02-06 08:36 | Diagnostic Imaging Report ---
PROCEDURE: US right lower extremity venous. TECHNIQUE: Multiple Real-time grayscale images were obtained over the right lower extremity in various projections. Additional spectral analysis and color Doppler duplex images were also obtained. INDICATION: Acute on chronic respiratory failure. FINDINGS: There is hypoechoic incompletely occlusive clot in the distal third of the right superficial femoral vein in the lower thigh. The popliteal is largely occluded and there is an predominantly occlusive clot burden in the upper common tibial peroneal trunk. The femoral vein within the thigh and the common femoral vein as well as the profunda appear patent. IMPRESSION: Positive for DVT. Hypoechoic acute appearing clot involves the distal/lower superficial femoral vein and the popliteal vein in the upper calf at the peroneal trunk. The results of this examination were relayed to the nurse prior to this dictation. Dictated by: Dictated on workstation # [id number]
[2022-02-06] MEDS: ALLOPURINOL 100 MG (ZYLOPRIM) TAB PO SCH (08:46)
[2022-02-06] MEDS: ASPIRIN E.C. 81 MG (ECOTRIN) TAB PO SCH (08:46)
[2022-02-06] MEDS ORDERED: APIXABAN 5 MG (ELIQUIS) TABLET PO SCH (09:00)
--- NOTE | 2022-02-06 10:38 | Consultation-Cardiology ---
HPI-Cardiology Cardiology Consultation: Date of Consultation 02/06/22 Date of Admission Attending Physician Nabil Melendez MD Admitting Physician Admitting Physician: Yvonne Mauro MD Attending Physician: Yvonne aMuro MD Consulting Physician Maryana Ashby MD Review of Systems-Cardiology All Other Systems Reviewed Negative Unless Noted: Yes LGA-Dyiuyp-Ceewsk Hx Patient Social History Smoking Status: Former Smoker 2nd Hand Smoke Exposure: Yes Have you traveled recently?: No Alcohol Use?: No Pt feels they are or have been: No Tobacco type used: Cigarettes Immunizations Up To Date Date of Pneumonia Vaccine: May 28, 2017 Date of Influenza Vaccine: May 27, 2018 Past Medical History PMH As described under Assessment. Allergies and Home Medications Allergies Coded Allergies: metformin (Verified Allergy, Intermediate, FLU LIKE SYMPTOMS, 09/02/18) Patient Home Medication List Allopurinol (Allopurinol) 300 Mg Tablet, 300 MG PO DAILY, (Reported) Entered as Reported by: BRIT MUÑOZ on 02/06/221433 Last Action: Continued Aspirin (Aspirin EC) 81 Mg Tablet., 81 MG PO DAILY, (Reported) Entered as Reported by: BRIT MUÑOZ on 02/06/221433 Last Action: Continued Escitalopram Oxalate (Escitalopram Oxalate) 10 Mg Tablet, 10 MG PO DAILY, (Reported) Entered as Reported by: RICHELLE AGUDELO on 02/05/221947 Last Action: Converted Lisinopril (Lisinopril) 40 Mg Tablet, 40 MG PO DAILY, (Reported) Entered as Reported by: BRIT MUÑOZ on 02/06/221433 Last Action: Held Omeprazole (Omeprazole) 20 Mg Capsule., 20 MG PO DAILY, (Reported) Entered as Reported by: TRAVIS CADE on 09/02/18902 Last Action: Continued Discontinued Medications Allopurinol (Allopurinol) 100 Mg Tablet, 100 MG PO DAILY, (Reported) Discontinued Reason: Duplicate Order Entered as Reported by: TRAVIS CADE on 09/02/18902 Last Action: Discontinued Baclofen (Baclofen) 10 Mg Tablet, 10 MG PO TID PRN for SPASMS Discontinued Reason: No Longer Taking Prescribed by: MARY ANN ALARCON on 09/07/18 09 Last Action: Discontinued Duloxetine HCl (Duloxetine HCl) 30 Mg Capsule.dr, 30 MG PO DAILY, (Reported) Discontinued Reason: No Longer Taking Entered as Reported by: TRAVIS CADE on 09/02/18902 Last Action: Discontinued Hydrocodone Bit/Acetaminophen (Lortab 5 Mg Tablet) 1 Tab Tab, 1-2 TAB PO Q4H PRN for PAIN-MODERATE TO SEVERE Discontinued Reason: No Longer Taking Prescribed by: MARY ANN ALARCON on 09/07/18 08 Last Action: Discontinued Liraglutide (Victoza 2-Kasi) 0.6 Mg/0.1 Ml Pen.injctr, 1.8 MG SQ DAILY, (Reported) Discontinued Reason: No Longer Taking Entered as Reported by: TRAVIS CADE on 09/02/18930 Last Action: Discontinued Metoprolol Tartrate (Metoprolol Tartrate) 25 Mg Tablet, 25 MG PO BID, (Reported) Discontinued Reason: No Longer Taking Entered as Reported by: TRAVIS CADE on 09/02/18902 Last Action: Discontinued Simvastatin (Simvastatin) 10 Mg Tablet, 10 MG PO DAILY, (Reported) Discontinued Reason: No Longer Taking Entered as Reported by: TRAVIS CADE on 09/02/18902 Last Action: Discontinued Physical Exam-Cardiology Physical Exam Vital Signs/I&O 02/07/22 02/07/22 02/07/22 02/07/22 01:00 03:20 07:00 07:09 Temp 36.3 Pulse 76 112 72 Resp 20 B/P (MAP) 133/95 (108) Pulse Ox 94 95 O2 Delivery NIV CPAP Nasal Cannula O2 Flow Rate 2.00 2.00 02/07/22 02/07/22 07:51 08:43 Temp 36.6 Pulse 97 Resp 22 B/P (MAP) 153/78 (103) Pulse Ox 96 O2 Delivery Nasal Cannula Nasal Cannula O2 Flow Rate 2.00 2.00 02/07/22 00:00 Intake Total 850 ml Balance 850 ml Capillary Refill : Data Review Labs Laboratory Tests 02/07/22 06:30: Sodium Level 137, Potassium Level 4.5, Chloride Level 106, Carbon Dioxide Level 21, Anion Gap 10, Blood Urea Nitrogen 24H, Creatinine 1.77H, Estimat Glomerular Filtration Rate 39, BUN/Creatinine Ratio 14, Glucose Level 126H, Calcium Level 8.6 Radiology NAME: SIMON SINGH [facility] REC#: [id number] PT STATUS: REG ER : 1940 PHYSICIAN: JOSLYN BACA MD ADMIT DATE: 02/05/22/ER Signed Date of Exam:02/05/22 CHEST 1 VIEW, AP/PA ONLY INDICATION: Increasing shortness of air with exertion. History of blood clots off blood thinners. EXAMINATION: Chest, 02/05/2022. FINDINGS: The heart is enlarged. Pulmonary vasculature is normal. There is left base atelectasis. Remaining lungs clear. No effusion. No infiltrate. No pneumothorax. IMPRESSION: 1. Minimal left base atelectasis. 2. Cardiomegaly. Dictated by: Dictated on workstation # [id number] Dict: 02/05/222007 Trans: 02/05/222111 [facility] [id number] Interpreted by: SHANE ROMERO MD Electronically signed by: SHANE ROMERO MD 02/05/222111 NAME: SIMON SINGH [facility] REC#: [id number] PT STATUS: ADM IN : 1940 PHYSICIAN: YVONNE MAURO MD ADMIT DATE: 02/05/22/[facility] Draft Date of Exam:02/06/22 CHEST 1 VIEW, AP/PA ONLY PATIENT HISTORY: Shortness of air. TECHNIQUE: Single frontal view of the chest. COMPARISON: 02/05/2022 FINDINGS: The lung volumes are normal. No focal consolidation is seen. No large pleural effusion or pneumothorax is seen. The cardiomediastinal silhouette is normal in size and contour. No acute osseous abnormality is seen. IMPRESSION: No acute pulmonary abnormality seen. Dictated on workstation # [id number] Dict: 02/06/2216 Trans: 02/06/22728 [facility] [id number] Interpreted by: JORGE ALBERTO GLASER MD Electronically signed by: NAME: SIMON SINGH [facility] REC#: [id number] PT STATUS: ADM IN : 1940 PHYSICIAN: YVONNE MAURO MD ADMIT DATE: 02/05/22/[facility] Draft Date of Exam:02/06/22 US VENOUS LOWER EXT RT PROCEDURE: US right lower extremity venous. TECHNIQUE: Multiple Real-time grayscale images were obtained over the right lower extremity in various projections. Additional spectral analysis and color Doppler duplex images were also obtained. INDICATION: Acute on chronic respiratory failure. FINDINGS: There is hypoechoic incompletely occlusive clot in the distal third of the right superficial femoral vein in the lower thigh. The popliteal is largely occluded and there is an predominantly occlusive clot burden in the upper common tibial peroneal trunk. The femoral vein within the thigh and the common femoral vein as well as the profunda appear patent. IMPRESSION: Positive for DVT. Hypoechoic acute appearing clot involves the distal/lower superficial femoral vein and the popliteal vein in the upper calf at the peroneal trunk. The results of this examination were relayed to the nurse prior to this dictation. Dictated on workstation # [id number] Dict: 02/06/22 0808 Trans: 02/06/22 0836 [id number] Interpreted by: JUAN A GUPTA Electronically signed by: A/P-Cardiology Assessment/Admission Diagnosis Chronic, mild, exertional shortness of breath - currently stable - PFTs of 09/03/19 (Dr Sotomayor): mild obstructive lung defect, mild decrease in diffusing capacity. CKD stage 3- 4 - Cr 1.92 on 08/25/19 and 1.62 on 09/03/19, pcp is following H/o DVT involving R popliteal vein - on leg venous Doppler of 08/27/18, treated with Eliquis for 6 mo Chronic diastolic CHF - clinically compensated (BNP normal at 18.4 on 09/03/19) Nonischemic cardiomyopathy - with LVEF 40% on echo of Jul 2012. - Echo of 08/29/19 (Dr Galicia) showed LVEF 60-65%, MAC, grade 1 yao dysfunction, mild to mod TR, PASP 29-35 mmHg. - Mild CAD on cath of 08/15/12 Chronic colitis - Negative for trypansoma cruzi (following travel to [facility] in 2011) - GERD Obesity - Elevated BMI approx 36 Chronic hearing loss - unchanged Ortho - DJD and chronic low backache Obstructive sleep apnea syndrome - for which he compliant with CPAP tx DM II - followed by his PCP No significant carotid art disease on a limited carotid u/s study of 07/09/18 DEIDRE ZAMARRIPA Feb 06, 2022 10:38
[2022-02-06] MEDS ORDERED: APIXABAN 5 MG (ELIQUIS) TABLET PO NR (10:49)
[2022-02-06] MEDS ORDERED: LISI40TA9 PO (14:34)
[2022-02-06] MEDS ORDERED: ASPI-1238 PO (14:34)
[2022-02-06] MEDS ORDERED: ALLO300T2 PO (14:34)
--- NOTE | 2022-02-06 16:59 | Consultation-Cardiology ---
HPI-Cardiology Cardiology Consultation: Date of Consultation 02/06/22 Time Seen by a Provider: 12:10 Date of Admission Attending Physician Nabil Melendez MD Admitting Physician Admitting Physician: Conchita Aguirre MD Attending Physician: Conchita Aguirre MD Consulting Physician ANAID SHERMAN MD, MA, FACP, FACC, [facility] [place], CCDS Physician requesting consult: Dr Aguirre HPI: Chief Complaint: Reason for Card consult: Elevated troponin 81 yo gentleman who has been experiencing increasing shortness of breath for 1 - 2 days prior to admission. Was evaluated by his son Pankaj yesterday and was found to be short of breath and mildly hypoxic and with some swelling of the R leg. He came to the ER and was diagnosed with R DVT and acute PE. Treatment was treated by Dr Aguirre. We were asked to see him in consult because troponin has been mildly elevated. He does not report chest pain. Does report shortness of breath with mild activity. No palp or syncope. No n/v/d or fever or chills Review of Systems-Cardiology Review of Systems Constitutional: As described under HPI Eyes: No vision change Ears/Nose/Throat: No ear discharge, No nasal drainage, No throat pain Respiratory: As described under HPI Cardiovascular: As described under HPI Gastrointestinal: As described under HPI Genitourinary: No dysuria Musculoskeletal: No back pain, No joint pain Skin: No ulcerations Psychiatric/Neurological: No seizure, No focal weakness, No syncope Hematologic: No bleeding abnormalities All Other Systems Reviewed Negative Unless Noted: Yes FYO-Bloxhx-Rtfhdr Hx Patient Social History Smoking Status: Former Smoker 2nd Hand Smoke Exposure: Yes Have you traveled recently?: No Alcohol Use?: No Pt feels they are or have been: No Tobacco type used: Cigarettes Immunizations Up To Date Date of Pneumonia Vaccine: May 28, 2017 Date of Influenza Vaccine: May 27, 2018 Past Medical History PMH As described under Assessment. Family Medical History Family Medical History: No fam h/o early CAD Allergies and Home Medications Allergies Coded Allergies: metformin (Verified Allergy, Intermediate, FLU LIKE SYMPTOMS, 09/02/18) Patient Home Medication List Home Medication List Reviewed: Yes Allopurinol (Allopurinol) 300 Mg Tablet, 300 MG PO DAILY, (Reported) Entered as Reported by: BRIT MUÑOZ on 02/06/22 7267 Last Action: Reviewed Aspirin (Aspirin EC) 81 Mg Tablet.dr, 81 MG PO DAILY, (Reported) Entered as Reported by: BRIT MUÑOZ on 02/06/22 143 Last Action: Reviewed Escitalopram Oxalate (Escitalopram Oxalate) 10 Mg Tablet, 10 MG PO DAILY, (Reported) Entered as Reported by: RICHELLE AGUDELO on 02/05/221947 Last Action: Reviewed Lisinopril (Lisinopril) 40 Mg Tablet, 40 MG PO DAILY, (Reported) Entered as Reported by: BRIT MUÑOZ on 02/06/22 143 Last Action: Reviewed Omeprazole (Omeprazole) 20 Mg Capsule., 20 MG PO DAILY, (Reported) Entered as Reported by: TRAVIS CADE on 09/02/18902 Last Action: Reviewed Discontinued Medications Allopurinol (Allopurinol) 100 Mg Tablet, 100 MG PO DAILY, (Reported) Discontinued Reason: Duplicate Order Entered as Reported by: TRAVIS CADE on 09/02/18902 Last Action: Discontinued Baclofen (Baclofen) 10 Mg Tablet, 10 MG PO TID PRN for SPASMS Discontinued Reason: No Longer Taking Prescribed by: MARY ANN ALARCON on 09/07/18899 Last Action: Discontinued Duloxetine HCl (Duloxetine HCl) 30 Mg Capsule., 30 MG PO DAILY, (Reported) Discontinued Reason: No Longer Taking Entered as Reported by: TRAVIS CADE on 09/02/18902 Last Action: Discontinued Hydrocodone Bit/Acetaminophen (Lortab 5 Mg Tablet) 1 Tab Tab, 1-2 TAB PO Q4H PRN for PAIN-MODERATE TO SEVERE Discontinued Reason: No Longer Taking Prescribed by: MARY ANN ALARCON on 09/07/18 0846 Last Action: Discontinued Liraglutide (Victoza 2-Kasi) 0.6 Mg/0.1 Ml Pen.injctr, 1.8 MG SQ DAILY, (Reported) Discontinued Reason: No Longer Taking Entered as Reported by: TRAVIS CADE on 09/02/18930 Last Action: Discontinued Metoprolol Tartrate (Metoprolol Tartrate) 25 Mg Tablet, 25 MG PO BID, (Reported) Discontinued Reason: No Longer Taking Entered as Reported by: TRAVIS CADE on 09/02/18902 Last Action: Discontinued Simvastatin (Simvastatin) 10 Mg Tablet, 10 MG PO DAILY, (Reported) Discontinued Reason: No Longer Taking Entered as Reported by: TRAVIS CADE on 09/02/18902 Last Action: Discontinued Physical Exam-Cardiology Physical Exam Vital Signs/I&O 02/06/22 02/06/22 02/06/22 02/06/22 07:00 07:45 08:00 08:00 Temp 36.4 Pulse 75 76 Resp 12 B/P (MAP) 112/89 (97) Pulse Ox 98 O2 Delivery NIV CPAP 02/06/22 02/06/22 02/06/22 02/06/22 08:02 12:00 12:36 15:31 Temp 36.3 Pulse 92 92 96 Resp 19 21 B/P (MAP) 102/68 (79) 110/81 (91) Pulse Ox 97 93 96 O2 Delivery Nasal Cannula Nasal Cannula Nasal Cannula O2 Flow Rate 2.00 02/06/22 00:00 Intake Total 500 ml Balance 500 ml Capillary Refill : Constitutional: well-developed, well-nourished, other (short of breath with mild activity) HEENT: EOMI, hearing is well preserved; No xanthelasmas are seen Neck: carotid pulses are 2 + bilaterally, with good upstrokes Respiratory: No accessory muscle use; other (fair, bilateral air entry; a few scattered wheezes) Cardiovascular: regular rate-rhythm, S1 and S2, systolic murmur (soft JOÃO at card base) Gastrointestinal: No tender; soft; No guarding, No rebound; audible bowel sounds Extremities: No clubbing, No cyanosis, No significant edema Neurologic/Psychiatric: oriented x 3, other (moves all limbs equally) Data Review Labs Laboratory Tests 02/05/22 19:37: Influenza Type A (RT-PCR) Not Detected, Influenza Type B (RT-PCR) Not Detected, SARS-CoV-2 RNA (RT-PCR) Not Detected 02/05/22 19:38: White Blood Count 12.4H, Red Blood Count 5.09, Hemoglobin 15.1, Hematocrit 46, Mean Corpuscular Volume 90, Mean Corpuscular Hemoglobin 30, Mean Corpuscular Hemoglobin Concent 33, Red Cell Distribution Width 13.2, Platelet Count 233, M marielos Platelet Volume 9.6, Immature Granulocyte % (Auto) 0, Neutrophils (%) (Auto) 75, Lymphocytes (%) (Auto) 16, Monocytes (%) (Auto) 6, Eosinophils (%) (Auto) 1, Basophils (%) (Auto) 1, Neutrophils # (Auto) 9.4H, Lymphocytes # (Auto) 2.0, Monocytes # (Auto) 0.8, Eosinophils # (Auto) 0.1, Basophils # (Auto) 0.1, Immature Granulocyte # (Auto) 0.0, Prothrombin Time 13.9, INR Comment 1.0, D- Dimer 13.82H, Sodium Level 141, Potassium Level 4.3, Chloride Level 107, Carbon Dioxide Level 20L, Anion Gap 14, Blood Urea Nitrogen 22H, Creatinine 2.05H, Estimat Glomerular Filtration Rate 32, BUN/Creatinine Ratio 11, Glucose Level 190H, Calcium Level 9.3, Corrected Calcium 9.1, Total Bilirubin 0.6, Aspartate Amino Transf (AST/SGOT) 18, Alanine Aminotransferase (ALT/SGPT) 31, Alkaline Phosphatase 66, Troponin I 0.329*H, C-Reactive Protein High Sensitivity 0.80H, B-Type Natriuretic Peptide 333.4H, Total Protein 7.7, Albumin 4.2, Procalcitonin 0.04 02/05/22 19:45: Bedside Blood Gas pH (LAB) 7.423H, Bedside Blood Gas pCO2 (LAB) 28.0L, Bedside Blood Gas pO2 (LAB) 123H, Bedside Blood Gas HCO3 (LAB) 18.3L, POC Blood Gas Total CO2 Calc 19L, Bedside Bl Gas O2 Saturation (Calc) 99H, Bedside Arterial Blood Base Excess -6L 02/06/22 03:05: White Blood Count 11.4H, Red Blood Count 4.62, Hemoglobin 13.8, Hematocrit 41, Mean Corpuscular Volume 89, Mean Corpuscular Hemoglobin 30, Mean Corpuscular Hemoglobin Concent 33, Red Cell Distribution Width 13.3, Platelet Count 207, Mean Platelet Volume 9.9, Immature Granulocyte % (Auto) 0, Neutrophils (%) (Auto) 57, Lymphocytes (%) (Auto) 31, Monocytes (%) (Auto) 7, Eosinophils (%) (Auto) 3, Basophils (%) (Auto) 1, Neutrophils # (Auto) 6.5, Lymphocytes # (Auto) 3.6, Monocytes # (Auto) 0.8, Eosinophils # (Auto) 0.4H, Basophils # (Auto) 0.1, Immature Granulocyte # (Auto) 0.1, Sodium Level 142, Potassium Level 4.2, Chloride Level 111H, Carbon Dioxide Level 18L, Anion Gap 13, Blood Urea Nitrogen 27H, Creatinine 1.84H, Estimat Glomerular Filtration Rate 37, BUN/Creatinine Ratio 15, Glucose Level 119H, Calcium Level 8.7, Troponin I 0.348*H 02/06/22 08:11: Troponin I 0.240H A/P-Cardiology Assessment/Admission Diagnosis 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 There is mild concentric hypertrophy. Systolic function is normal. The estimated ejection fraction is 55-60%. There were no regional wall motion abnormalities identified. Right ventricle: The cavity size is mildly increased. Right atrium: The atrium is mildly dilated. Pulmonary arteries: Systolic pressure is in the range of 55 mm Hg to 60 mm Hg. Mild troponin elevation: type II OR due to transient hypoxia H/o mild COPD - PFTs of 09/03/19 (Dr Sotomayor): mild obstructive lung defect, mild decrease in diffusing capacity. CKD stage 3- 4 - Cr 1.84 and eGFR 37 on 02/06/22 H/o DVT involving R popliteal vein in 2019 - treated with Eliquis for 6 mo at that time Chronic diastolic CHF - clinically compensated (BNP normal at 18.4 on 09/03/19) Nonischemic cardiomyopathy - with LVEF 40% on echo of Jul 2012. - Echo of 08/29/19 (Dr Galicia) showed LVEF 60-65%, MAC, grade 1 yao dysfunction, mild to mod TR, PASP 29-35 mmHg. - Mild CAD on cath of 08/15/12 - Echo n 01/20/20: see above Chronic colitis - Negative for trypansoma cruzi (following travel to [facility] in 2011) - GERD Elevated BMI of approx 33 Chronic hearing loss - unchanged Ortho - DJD and chronic low backache Obstructive sleep apnea syndrome - CPAP tx DM II - followed by his PCP No significant carotid art disease on a limited carotid u/s study of 07/09/18 Discussion and Recomendations * Anticoag is being managed by Dr Aguirre * Would need anticoag for life, given recurrent DVT * Monitor labs closely * Slowly increase activity ANAID SHERMAN MD FACP FAC CCDS Feb 06, 2022 16:58
--- NOTE | 2022-02-06 17:03 | History & Physical-Hospitalist ---
History of Present Illness HPI/Chief Complaint Jordi Lira is a 81 year old male with PMH HTN, HFpEF, KARAN on CPAP, CKD 3, history of DVT/PE, who presented with shortness of breath. He was at his son's house for Father's Day and became very short of breath walking into the house. This improved with rest and a Duoneb treatment. He was again very short of breath with exertion upon walking later. He had reportedly had an episode of dizziness. He also had right leg swelling. He denies chest pain. He denies fevers and chills. He denies cough. He denies abdominal pain, nausea, vomiting, and diarrhea. He was on blood thinners for 6 months after his DVT/PE a few years ago. He is up to date on his colonoscopy. He has no history of cancer. He is relatively immobile. Source: patient, family Exam Limitations: no limitations Date Seen 02/06/22 Time Seen by a Provider: 10:20 Attending Physician Nabil Melendez MD PCP Admitting Physician: Yvonne Mauro MD Attending Physician: Yvonne Mauro MD Referring Physician Date of Admission Feb 05, 2022 at 21:15 Home Medications & Allergies Home Medications Reviewed patient Home Medication Reconciliation performed by pharmacy medication reconciliations firestopper technician and/or nursing. Patients Allergies have been reviewed. Allergies Allergies Coded Allergies metformin (Verified Allergy, Intermediate, FLU LIKE SYMPTOMS, 09/02/18) Past Fnquucg-Enhtto-Uksyhe Hx Patient Social History Tobacco Use?: No Tobacco type used: Cigarettes Smoking Status: Former Smoker Use of E-Cig and/or Vaping dev: No Substance use?: No Alcohol Use?: No Pt feels they are or have been: No Immunizations Up To Date Date of Influenza Vaccine: May 27, 2018 First/Initial COVID19 Vaccinat: x4 Second COVID19 Vaccination Melquiades: x4 Tetanus Booster (TDap): Unknown Date of Pneumonia Vaccine: May 28, 2017 Seasonal Allergies Seasonal Allergies: No Current Status Advance Directives: No Communicates: Verbally Primary Language: Mauritanian Preferred Spoken Language: Mauritanian Is interpretation needed?: No Implanted or Applied Medical D: Orthopedic hardware Past Medical History Surgeries: Orthopedic, Tonsillectomy Sleep Apnea Currently Using CPAP: Yes High Cholesterol, Hypertension Sexually Transmitted Disease: No HIV/AIDS: No Kidney Stones Colitis, Gastroesophageal Reflux Diabetes, Non-Insulin dep Loss of Vision: Bilateral Hearing Impairment: Bilateral Hearing Aide Anxiety, Depression Blood Disorders: No Adverse Reaction/Blood Tranf: No (N/A) Family Medical History Hypertension Review of Systems Constitutional: dizziness EENTM: no symptoms reported Respiratory: dyspnea on exertion, short of breath Cardiovascular: edema Gastrointestinal: no symptoms reported Genitourinary: no symptoms reported Musculoskeletal: no symptoms reported Skin: no symptoms reported Psychiatric/Neurological: No Symptoms Reported Physical Exam Physical Exam Vital Signs Vital Signs - First Documented 02/05/22 02/05/22 19:29 22:33 Temp 36.2 Pulse 117 Resp 22 B/P (MAP) 145/89 (107) Pulse Ox 94 O2 Delivery Room Air O2 Flow Rate 2.00 FiO2 28 Capillary Refill : Height, Weight, BMI Height: 5'11.00" Weight: 245lbs. 4.0oz. 111.925196qy; 32.77 BMI Method:Stated General Appearance: No Apparent Distress, Obese HEENT: PERRL/EOMI, Pharynx Normal Neck: Normal Inspection, Supple Respiratory: Lungs Clear, Normal Breath Sounds, No Respiratory Distress Cardiovascular: Regular Rate, Rhythm, No Murmur, Normal Peripheral Pulses Gastrointestinal: Normal Bowel Sounds, Non Tender, Soft, Distended Extremity: Non Tender; No Inflammation; Swelling (right > lefft) Neurologic/Psychiatric: Alert, Oriented x3, Normal Mood/Affect, Other (hearing difficulty, wearing hearing aids) Skin: Normal Color, Warm/Dry Results Results/Procedures Labs Laboratory Tests 02/05/22 19:38 02/06/22 03:05 Patient resulted labs reviewed. Imaging: Reviewed Imaging Report Assessment/Plan Admission Diagnosis Acute pulmonary embolism Admission Status: Inpatient Order (span 2 midnights) Reason for Inpatient Admission: Respiratory failure Assessment and Plan Acute pulmonary embolism Acute DVT of the right popliteal vein Acute respiratory failure with hypoxia Supplemental oxygen as needed Ddimer elevated Unable to perform CT due to kidney failure US right leg with DVT of popliteal vein Presumed pulmonary embolism Troponin mildly elevated, likely due to right heart strain Echo with normal EF, pulmonary hypertension Cardiology consulted, follows with Dr. Ashby Started on Eliquis, increase to acute VTE dosing Home oxygen study HTN Hold Lisinopril KARAN CPAP Gout GERD Continue home meds Diagnosis/Problems Diagnosis/Problems (1) Acute pulmonary embolism Status: Acute Qualifiers: Pulmonary embolism type: unspecified Acute cor pulmonale presence: unspecified Qualified Codes: I26.99 - Other pulmonary embolism without acute cor pulmonale (2) Acute deep vein thrombosis (DVT) of popliteal vein of right lower extremity Status: Acute (3) Acute respiratory failure with hypoxia Status: Acute (4) Elevated troponin Status: Acute (5) KARAN on CPAP Status: Chronic YVONNE MAURO MD Feb 06, 2022 17:03
[2022-02-06] MEDS: APIXABAN 5 MG (ELIQUIS) TABLET PO SCH (20:55)
[2022-02-07 03:20] VITALS: BP 133/95
[2022-02-07] MEDS: CATHETER FLUSH 10 ML SYR IVP SCH ×2 (06:16→14:00)
[2022-02-07 06:58] LABS: POTASSIUM 4.5 MMOL/L (3.6-5.0)
[2022-02-07 06:59] LABS: CALCIUM 8.6 MG/DL (8.5-10.1)
[2022-02-07 07:03] LABS: CREATININE SERUM 1.77 MG/DL (0.60-1.30)
[2022-02-07] MEDS: RT-ALBUTEROL/IPRATROPIUM 3 ML (DUONEB) VIAL INH SCH (07:08)
[2022-02-07] MEDS: APIXABAN 5 MG (ELIQUIS) TABLET PO SCH (07:49)
[2022-02-07] MEDS: ASPIRIN E.C. 81 MG (ECOTRIN) TAB PO SCH (07:49)
[2022-02-07 07:51] VITALS: BP 153/78
[2022-02-07] MEDS: ALLOPURINOL 100 MG (ZYLOPRIM) TAB PO SCH (08:33)
[2022-02-07] MEDS ORDERED: ALLOPURINOL 300 MG (ZYLOPRIM) TAB PO SCH (09:00)
[2022-02-07] MEDS ORDERED: ASPIRIN E.C. 81 MG (ECOTRIN) TAB PO SCH (09:00)
[2022-02-07] MEDS ORDERED: PANTOPRAZOLE 20 MG TABLET (PROTONIX) PO SCH (09:00)
--- NOTE | 2022-02-07 11:27 | Progress Note - Cardiology ---
Cardiology SOAP Progress Note Objective: I&O/Vital Signs 02/07/22 02/07/22 02/07/22 02/07/22 01:00 03:20 07:00 07:09 Temp 36.3 Pulse 76 112 72 Resp 20 B/P (MAP) 133/95 (108) Pulse Ox 94 95 O2 Delivery NIV CPAP Nasal Cannula O2 Flow Rate 2.00 2.00 02/07/22 02/07/22 07:51 08:43 Temp 36.6 Pulse 97 Resp 22 B/P (MAP) 153/78 (103) Pulse Ox 96 O2 Delivery Nasal Cannula Nasal Cannula O2 Flow Rate 2.00 2.00 02/07/22 00:00 Intake Total 850 ml Balance 850 ml Weight (Pounds): 245 Weight (Ounces): 4.0 Weight (Calculated Kilograms): 111.256010 Constitutional: well-developed, well-nourished, other (short of breath with mild activity) Respiratory: No accessory muscle use; other (fair, bilateral air entry; a few scattered wheezes) Cardiovascular: regular rate-rhythm, S1 and S2, systolic murmur (soft JOÃO at card base) Gastrointestional: No tender; soft; No guarding, No rebound; audible bowel sounds Extremities: No clubbing, No cyanosis, No significant edema Neurologic/Psychiatric: oriented x 3, other (moves all limbs equally) Results/Procedures: Labs Laboratory Tests 02/07/22 06:30: Sodium Level 137, Potassium Level 4.5, Chloride Level 106, Carbon Dioxide Level 21, Anion Gap 10, Blood Urea Nitrogen 24H, Creatinine 1.77H, Estimat Glomerular Filtration Rate 39, BUN/Creatinine Ratio 14, Glucose Level 126H, Calcium Level 8.6 Laboratory Tests 02/05/22 19:38 02/06/22 03:05 02/07/22 06:30 A/P: Assessment: 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 There is mild concentric hypertrophy. Systolic function is normal. The estimated ejection fraction is 55-60%. There were no regional wall motion abnormalities identified. Right ventricle: The cavity size is mildly increased. Right atrium: The atrium is mildly dilated. Pulmonary arteries: Systolic pressure is in the range of 55 mm Hg to 60 mm Hg. Mild troponin elevation: type II IL due to transient hypoxia H/o mild COPD - PFTs of 09/03/19 (Dr Sotomayor): mild obstructive lung defect, mild decrease in diffusing capacity. CKD stage 3- 4 - Cr 1.84 and eGFR 37 on 02/06/22 H/o DVT involving R popliteal vein in 2019 - treated with Eliquis for 6 mo at that time Chronic diastolic CHF - clinically compensated (BNP normal at 18.4 on 09/03/19) Nonischemic cardiomyopathy - with LVEF 40% on echo of Jul 2012. - Echo of 08/29/19 (Dr Galicia) showed LVEF 60-65%, MAC, grade 1 yao dysfunction, mild to mod TR, PASP 29-35 mmHg. - Mild CAD on cath of 08/15/12 - Echo n 01/20/20: see above Chronic colitis - Negative for trypansoma cruzi (following travel to [facility] in 2011) - GERD Elevated BMI of approx 33 Chronic hearing loss - unchanged Ortho - DJD and chronic low backache Obstructive sleep apnea syndrome - CPAP tx DM II - followed by his PCP No significant carotid art disease on a limited carotid u/s study of 07/09/18 Plan: * Anticoag is being managed by Dr Aguirre * Would need anticoag for life, given recurrent DVT * Monitor labs closely * Slowly increase activity DEIDRE ZAMARRIPA Feb 07, 2022 11:27
[2022-02-07] MEDS ORDERED: APIX5TAB PO (11:41)
[2022-02-07 12:00] VITALS: BP 132/68
[2022-02-07] MEDS ORDERED: METO-352 PO (15:03)
--- NOTE | 2022-02-07 15:25 | Discharge Summary ---
Discharge Summary Hospital Course Problems/Dx: (1) Acute pulmonary embolism Status: Acute Qualifiers: Qualified Codes: I26.99 - Other pulmonary embolism without acute cor pulmonale (2) Acute deep vein thrombosis (DVT) of popliteal vein of right lower extremity Status: Acute (3) Elevated troponin Status: Acute (4) KARAN on CPAP Status: Chronic (5) Acute respiratory failure with hypoxia Status: Resolved Hospital Course Date of Admission: Feb 05, 2022 at 21:15 Admission Diagnosis : Acute DVT/PE Family Physician/Provider: Nabil Melendez MD Date of Discharge: 02/07/22 Discharge Diagnosis: Acute DVT/PE Hospital Course: Jordi Lira is a 81 year old male who presented with shortness of breath and was admitted with acute pulmonary embolism. He was found to have an acute right popliteal DVT. He has chronic kidney disease and was unable to undergo CT and was presumed to have a pulmonary embolism as well. He has a history of DVT/PE and will need lifelong anticoagulation. He was started on treatment dose Eliquis for DVT/PE. 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 This was thought to be demand ischemia, type II NSTEMI, due to hypoxia. His blood pressures were on the low end of normal and his Lisinopril was stopped. He was started on Metoprolol. He underwent an oxygen evaluation after initially requiring supplemental oxygen, but did not qualify for home oxygen. He was discharged home in stable condition. He should follow up with his PCP, Dr. Melendez in about a week. They should make sure he is up to date on all age- appropriate cancer screenings. He should follow up with cardiology as scheduled. Labs and Pending Lab Test: Laboratory Tests 02/07/22 06:30: Sodium Level 137, Potassium Level 4.5, Chloride Level 106, Carbon Dioxide Level 21, Anion Gap 10, Blood Urea Nitrogen 24H, Creatinine 1.77H, Estimat Glomerular Filtration Rate 39, BUN/Creatinine Ratio 14, Glucose Level 126H, Calcium Level 8.6 Home Meds Active Toprol Xl (Metoprolol Succinate) 50 Mg Tab.er.24h 50 Mg PO DAILY Eliquis (Apixaban) 5 Mg Tablet 5 Mg PO BID 30 Days TAKE 2 TABLETS BID X 7 DAYS, THEN 1 TABLET BID Reported Allopurinol 300 Mg Tablet 300 Mg PO DAILY Aspirin EC (Aspirin) 81 Mg Tablet. 81 Mg PO DAILY Escitalopram Oxalate 10 Mg Tablet 10 Mg PO DAILY Omeprazole 20 Mg Capsule.dr 20 Mg PO DAILY Assessment/Pt Instructions See instructions Discharge Planning: >30 minutes discharge planning Discharge Instructions Discharge Diet: Low Sodium Diet Activity as Tolerated: Yes Consultations Cardiology Discharge Physical Examination Vital Signs Vital Signs Date Time Temp Pulse Resp B/P (MAP) Pulse Ox O2 Delivery O2 Flow Rate FiO2 02/07/22 12:14 98 02/07/22 12:00 36.4 14 132/68 (89) 98 Nasal Cannula 2.00 02/05/22 22:33 28 General Appearance: No Apparent Distress, Obese Respiratory: Lungs Clear, Normal Breath Sounds, No Respiratory Distress Cardiovascular: Regular Rate, Rhythm, No Murmur Gastrointestinal: Normal Bowel Sounds, Non Tender, Soft, Distended Extremity: Non Tender, Swelling Skin: Normal Color, Warm/Dry Neurologic/Psychiatric: Alert, Oriented x3, No Motor/Sensory Deficits, Normal Mood/Affect Allergies: Coded Allergies: metformin (Verified Allergy, Intermediate, FLU LIKE SYMPTOMS, 09/02/18) Copy Copies To 1: NABIL MELENDEZ MD Discharge Summary Date of Admission Feb 05, 2022 at 21:15 Date of Discharge Discharge Date: Feb 07, 2022 Discharge Time: 15:19 Admission Diagnosis Acute pulmonary embolism Consults/Procedures Consulations Cardiology Discharge Diagnosis Acute pulmonary embolism Acute DVT of the right popliteal vein (1) Acute pulmonary embolism Status: Acute Qualifiers: Qualified Codes: I26.99 - Other pulmonary embolism without acute cor pulmonale (2) Acute deep vein thrombosis (DVT) of popliteal vein of right lower extremity Status: Acute (3) Acute respiratory failure with hypoxia Status: Resolved (4) Elevated troponin Status: Acute (5) KARAN on CPAP Status: Chronic YVONNE MAURO MD Feb 07, 2022 15:24
--- NOTE | 2022-02-07 15:25 | Progress Note - Cardiology ---
Cardiology SOAP Progress Note Subjective: Feels better today No cp or palp or syncope Shortness of breath better, but not resolved No focal weakness No n/v/d Objective: I&O/Vital Signs 02/07/22 02/07/22 02/07/22 02/07/22 07:00 07:09 07:51 08:43 Temp 36.6 Pulse 72 97 Resp 22 B/P (MAP) 153/78 (103) Pulse Ox 95 96 O2 Delivery Nasal Cannula Nasal Cannula Nasal Cannula O2 Flow Rate 2.00 2.00 2.00 02/07/22 02/07/22 12:00 12:14 Temp 36.4 Pulse 86 98 Resp 14 B/P (MAP) 132/68 (89) Pulse Ox 98 O2 Delivery Nasal Cannula O2 Flow Rate 2.00 02/07/22 00:00 Intake Total 850 ml Balance 850 ml Weight (Pounds): 245 Weight (Ounces): 4.0 Weight (Calculated Kilograms): 111.246303 Constitutional: well-developed, well-nourished, other (short of breath with mild activity) Respiratory: No accessory muscle use; other (fair, bilateral air entry; a few scattered wheezes) Cardiovascular: regular rate-rhythm, S1 and S2, systolic murmur (soft JOÃO at card base) Gastrointestional: No tender; soft; No guarding, No rebound; audible bowel sounds Extremities: No clubbing, No cyanosis, No significant edema Neurologic/Psychiatric: oriented x 3, other (moves all limbs equally) Results/Procedures: Labs Laboratory Tests 02/07/22 06:30: Sodium Level 137, Potassium Level 4.5, Chloride Level 106, Carbon Dioxide Level 21, Anion Gap 10, Blood Urea Nitrogen 24H, Creatinine 1.77H, Estimat Glomerular Filtration Rate 39, BUN/Creatinine Ratio 14, Glucose Level 126H, Calcium Level 8.6 Laboratory Tests 02/05/22 19:38 02/06/22 03:05 02/07/22 06:30 A/P: Assessment: 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 There is mild concentric hypertrophy. Systolic function is normal. The estimated ejection fraction is 55-60%. There were no regional wall motion abnormalities identified. Right ventricle: The cavity size is mildly increased. Right atrium: The atrium is mildly dilated. Pulmonary arteries: Systolic pressure is in the range of 55 mm Hg to 60 mm Hg. Mild troponin elevation: type II CO due to transient hypoxia H/o mild COPD - PFTs of 09/03/19 (Dr Sotomayor): mild obstructive lung defect, mild decrease in diffusing capacity. 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 - Echo of 08/29/19 (Dr Galicia) showed LVEF 60-65%, MAC, grade 1 yao dysfunction, mild to mod TR, PASP 29-35 mmHg. - Mild CAD on cath of 08/15/12 - Echo n 01/20/20: see above Chronic colitis - Negative for trypansoma cruzi (following travel to [facility] in 2011) - GERD Elevated BMI of approx 33 Chronic hearing loss - unchanged Ortho - DJD and chronic low backache Obstructive sleep apnea syndrome - CPAP tx DM II - followed by his PCP No significant carotid art disease on a limited carotid u/s study of 07/09/18 Plan: * Anticoag is being managed by Dr Aguirre * Would need anticoag for life, given recurrent DVT * D/c lisinopril (given recent worsening of renal insuff) and replace with metoprolol succinate * I discussed his CV issues with his son Chun Lira * Ok to d/c from cardiac standpoint * Close outpt f/u advised ANAID SHERMAN MD FACP FAC CCDS Feb 07, 2022 15:25
== END 2022-02-07 15:50 | disposition home or self-care (01) | DRG 280 ==
LOC: EDUNIT# 19:28 → ER 19:33 → CSD 21:15
PROVIDERS: ADMIT Internal Medicine; ATTEND Internal Medicine
DX: I82.431 Acute embolism and thrombosis of right popliteal vein (principal); I26.99 Other pulmonary embolism without acute cor pulmonale; I21.A1 Myocardial infarction type 2; J96.21 Acute and chronic respiratory failure with hypoxia; I50.33 Acute on chronic diastolic (congestive) heart failure; I13.0 Hypertensive heart and chronic kidney disease with heart failure and stage 1 through stage 4 chronic kidney disease, or unspecified chronic kidney disease; I42.9 Cardiomyopathy, unspecified; E11.22 Type 2 diabetes mellitus with diabetic chronic kidney disease; N18.30 Chronic kidney disease, stage 3 unspecified; Z20.822 Contact with and (suspected) exposure to COVID-19; J44.9 Chronic obstructive pulmonary disease, unspecified; G47.33 Obstructive sleep apnea (adult) (pediatric); K52.9 Noninfective gastroenteritis and colitis, unspecified; K21.9 Gastro-esophageal reflux disease without esophagitis; E78.00 Pure hypercholesterolemia, unspecified; M19.91 Primary osteoarthritis, unspecified site; M48.061 Spinal stenosis, lumbar region without neurogenic claudication; H54.7 Unspecified visual loss; Z97.4 Presence of external hearing-aid; F41.9 Anxiety disorder, unspecified; F32.A Depression, unspecified; Z87.891 Personal history of nicotine dependence; Z79.82 Long term (current) use of aspirin; Z88.8 Allergy status to other drugs, medicaments and biological substances
CPT/HCPCS: 36415; 71045; 80048; 80053; 82805; 83880; 84145; 84484; 85025; 85379; 85610; 86141; 87636; 93005; 93306; 94640; 94664; 94760; 94761

== ENCOUNTER → 2022-12-18 | Outpatient (CLI) | payer MEDICARE ==
[~2022-12-18] MED LIST changes: +ALLO300T2 PO; +APIX5TAB PO; +ASPI-1238 PO; +ESCI-2 PO; +LISI40TA9 PO; +METO-352 PO
== END ==
LOC: CARD 11:00
PROVIDERS: ATTEND Internal Medicine Cardiovascular Disease
DX: I51.7 Cardiomegaly (principal); I27.20 Pulmonary hypertension, unspecified
CPT/HCPCS: 93306

== ENCOUNTER → 2023-05-22 | Outpatient (CLI) | payer MEDICARE ==
[~2023-05-22] VITALS: Ht 180 cm; Wt 109.0 kg
[~2023-05-22] MED LIST changes: +CATHETER FLUSH 10 ML SYR IVP PRN; +REGADENOSON 0.4 MG/5 ML SYR IV ONE
[2023-05-22 09:13] VITALS: BP 189/101
--- NOTE | 2023-05-22 20:54 | STRESS TEST ---
DATE OF SERVICE: 05/22/2023 RESTING AND POST REGADENOSON TECHNETIUM-99M TETROFOSMIN SPECT CT IMAGING ORDERING PHYSICIAN: Dr. Ashby. PRIMARY PHYSICIAN: Dr. Nabil Melendez. CLINICAL DIAGNOSIS: Chest discomfort. Baseline images were carried out after injection of 10.67 mCi technetium-99m tetrofosmin. This was followed by 0.4 mg regadenoson and 28.3 mCi of technetium-99m tetrofosmin for stress imaging. The electrocardiogram showed sinus rhythm at baseline. It did not change significantly with regadenoson infusion. The patient tolerated the procedure well. Review of images at rest and following stress indicates inferolateral perfusion defect, which appears to be predominantly transient. Gated images show normal global left ventricular systolic function with normal regional wall motion. Left ventricular ejection fraction is calculated to be 53%. CONCLUSIONS: 1. This study is indicative of moderate amount of inferolateral ischemia. 2. Normal regional wall motion. 3. Normal global left systolic function with an ejection fraction of 53%. Job ID: [id number] DocumentID: [id number] Dictated Date: 05/22/2023 16:08:55 Graphic Engineer Date: 05/22/2023 20:52:00 Dictated By: ANAID ASHBY MD; SUE; FACP; FACC;
== END ==
LOC: CARD 07:26
PROVIDERS: ATTEND Internal Medicine Cardiovascular Disease
DX: R07.89 Other chest pain (principal)
CPT/HCPCS: 78452; 93017; A9502